=== PATIENT | male | born 1940 | race Caucasian/White ===

== ENCOUNTER → 2017-11-05 | Outpatient (CLI) | payer MEDICARE, OTHER ==
[~2017-11-05] MED LIST: ASPI-231 PO; ATEN50TA PO; ATO40T PO; ATOR40TA52 PO; LOSA25TA9 PO; METF-372 PO; OMEP20CA74 PO; RANI150C11 PO; RANI1TAB PO
== END | disposition home or self-care (01) ==
LOC: XYW 08:29
PROVIDERS: ATTEND Family Medicine
DX: K40.20 Bilateral inguinal hernia, without obstruction or gangrene, not specified as recurrent (principal); N13.30 Unspecified hydronephrosis; K80.20 Calculus of gallbladder without cholecystitis without obstruction; S36.81XA Injury of peritoneum, initial encounter; I70.0 Atherosclerosis of aorta; K44.9 Diaphragmatic hernia without obstruction or gangrene; X58.XXXA Exposure to other specified factors, initial encounter; Y93.89 Activity, other specified; Y92.89 Other specified places as the place of occurrence of the external cause; Y99.8 Other external cause status
CPT/HCPCS: 74176

== ENCOUNTER → 2019-02-16 | Outpatient (CLI) | payer MEDICARE, OTHER ==
[~2019-02-16] MED LIST changes: +LOSA25TA38 PO; -LOSA25TA9 PO
== END | disposition home or self-care (01) ==
LOC: XYW 10:33
DX: M16.0 Bilateral primary osteoarthritis of hip (principal); M43.16 Spondylolisthesis, lumbar region
CPT/HCPCS: 72100; 73501

== ENCOUNTER → 2019-12-01 | Outpatient (CLI) | payer MEDICARE, OTHER | END | disposition home or self-care (01) | LOC: CT 08:17 | DX: Z12.2 Encounter for screening for malignant neoplasm of respiratory organs (principal); I70.0 Atherosclerosis of aorta; I25.10 Atherosclerotic heart disease of native coronary artery without angina pectoris; I51.7 Cardiomegaly; J43.9 Emphysema, unspecified; J47.9 Bronchiectasis, uncomplicated; J98.11 Atelectasis; R91.1 Solitary pulmonary nodule; K80.20 Calculus of gallbladder without cholecystitis without obstruction; K44.9 Diaphragmatic hernia without obstruction or gangrene; Z87.891 Personal history of nicotine dependence | CPT/HCPCS: 71250 ==

== ENCOUNTER → 2021-01-24 | Outpatient (CLI) | payer MEDICARE, OTHER | END | disposition home or self-care (01) | LOC: XYW 09:21 | DX: K76.0 Fatty (change of) liver, not elsewhere classified (principal); N32.89 Other specified disorders of bladder; R91.8 Other nonspecific abnormal finding of lung field; J84.10 Pulmonary fibrosis, unspecified; J43.2 Centrilobular emphysema; K80.20 Calculus of gallbladder without cholecystitis without obstruction; K44.9 Diaphragmatic hernia without obstruction or gangrene; I70.0 Atherosclerosis of aorta; R94.4 Abnormal results of kidney function studies; Z98.61 Coronary angioplasty status | CPT/HCPCS: 71250; 76775 ==

== ENCOUNTER → 2022-01-15 | Outpatient (CLI) | payer MEDICARE, OTHER ==
[~2022-01-15] MED LIST changes: -ASPI-231 PO; +ASPI1TAB20 PO; +IOHEXOL 350 MG/ML 100ML IJ ONE
== END | disposition home or self-care (01) ==
LOC: CT 08:29
DX: E07.89 Other specified disorders of thyroid (principal); J98.4 Other disorders of lung; M12.9 Arthropathy, unspecified; I70.0 Atherosclerosis of aorta; I65.29 Occlusion and stenosis of unspecified carotid artery
CPT/HCPCS: 70498; Q9967

== ENCOUNTER 2022-05-14 08:38 | Inpatient (IN) | payer MEDICARE, OTHER ==
[2022-05-14] VITALS (40 sets, daily range): BP systolic 72–159; BP diastolic 32–135
[~2022-05-14] VITALS: Ht 167.6 cm; Wt 71.2 kg
[~2022-05-14 08:38] MED LIST changes: -IOHEXOL 350 MG/ML 100ML IJ ONE
[2022-05-14] MEDS ORDERED: ONDANSETRON HCL 4 MG/2 ML VIAL IV ONE (09:15)
[2022-05-14] MEDS ORDERED: MORPHINE SULFATE 4 MG/ML SYR/VIAL IV ONE (09:15)
[2022-05-14] MEDS ORDERED: SODIUM CHLORIDE 0.9% 1,000 ML IV ONE ×2 (09:15)
[2022-05-14] MEDS ORDERED: DOPamine 1600MCG/ML D5W 250 ML IV ONE (10:00)
[2022-05-14 10:02] LABS: INR 1.25 (0.9-1.15); Partial Thromboplastin Time 32.6 sec (24.6-33.4)
[2022-05-14 10:11] LABS: Hemoglobin 10.4 g/dL (13.5-17.5); White Blood Cell 12.1 10^3/uL (4.4-10.8)
[2022-05-14 10:15] LABS: Hematocrit 32.4 % (41.0-53.0); Mean Corpuscular Hemoglobin 27.5 pg (28.0-32.0); Mean Corpuscular Hgb Conc. 32.1 g/dL (32.0-36.0); Mean Corpuscular Volume 85.8 fL (80.0-100.0); Red Blood Cells 3.78 10^6/uL (4.5-5.90); Red Cell Distribution Width 15.1 % (11.8-14.3)
[2022-05-14 10:20] LABS: Albumin 2.3 g/dL (3.4-5.0); Calcium 8.8 mg/dL (8.5-10.1); Magnesium 2.2 mg/dL (1.6-2.6); Potassium 5.2 mmol/L (3.5-5.1)
[2022-05-14 10:24] LABS: BUN/Creatinine Ratio 14.8; Bilirubin, Total 0.7 mg/dL (0.2-1.0); Total Protein 6.6 g/dL (6.4-8.2)
[2022-05-14] MEDS ORDERED: ASPirin 81 mg TAB PO ONE (10:30)
[2022-05-14] MEDS ORDERED: ENOXAPARIN SOD 60 MG/0.6 ML SYRINGE SC ONE (10:30)
[2022-05-14 10:35] LABS: Basophils % (manual) 0 (0.0-2.0); Blast Cells 0; Eosinophils % (manual) 0 (0-7); Promyelocytes % 0; Reactive Lymphocytes 0
[2022-05-14] MEDS ORDERED: PANTOPRAZOLE 40 MG/10 ML VIAL INJ IV ONE (11:30)
[2022-05-14] MEDS ORDERED: DEXTROSE (50%) 50ML SYRG IV PRN (11:30)
[2022-05-14 11:38] LABS: Urine Amorphous Crystal MOD /hpf (None Seen); Urine Bacteria FEW /hpf (None Seen); Urine Blood TRACE /uL (Negative); Urine Specific Gravity 1.024 (1.001-1.035); Urine WBC 5 /hpf (0 - 3)
[2022-05-14] MEDS ORDERED: DexAMETHasone SOD PHOS 4 MG/1ML SDV INJ IV ONE (11:45)
[2022-05-14] MEDS ORDERED: SODIUM CHLORIDE 0.9% 1,000 ML IV SCH (11:45)
[2022-05-14] MEDS: NOREPINEPHRINE 8 MG/250ML KIT 250 ML IV SCH (11:45)
[2022-05-14] MEDS: DOPamine 1600MCG/ML D5W 250 ML IV SCH ×2 (11:58→18:10)
[2022-05-14 12:06] LABS: Band Neutrophils % (manual) 15; Lymphocytes % (manual) 21 (10.0-50.0); Metamyelocytes % 5; Monocytes % (manual) 9 (0-12); Myelocytes % 1
[2022-05-14] MEDS ORDERED: KETOROLAC TROMETH 30 MG/ML 1ML VIAL IV ONE (13:00)
[2022-05-14] MEDS: ACCU-CHEK COMFORT CURVE STRIP VI SCH ×3 (13:15→23:36)
[2022-05-14] MEDS: InsuLIN REG 1unit/0.01ml Soln (100units/ml) SC SCH ×3 (13:15→23:34)
[2022-05-14] MEDS ORDERED: HYDROmorphone HCL 2 MG/ML VL/or syr IV PRN (14:30)
[2022-05-14] MEDS ORDERED: PIPERACILLIN-TAZOB 2.25GM 50 ML IV ONE (15:00)
[2022-05-14] MEDS ORDERED: CYCLOBENZAPRINE HCL 10 MG TAB PO PRN (15:15)
[2022-05-14] MEDS ORDERED: RANO500T2 PO (15:38)
[2022-05-14] MEDS ORDERED: METF-370 PO (15:38)
[2022-05-14] MEDS ORDERED: PERCOT PO (15:38)
[2022-05-14] MEDS ORDERED: ACET1CAP14 PO (15:38)
[2022-05-14] MEDS ORDERED: CLOP75TA28 PO (15:38)
[2022-05-14] MEDS ORDERED: CYCL-837 PO (15:38)
[2022-05-14] MEDS ORDERED: AML5T PO (15:38)
[2022-05-14] MEDS ORDERED: LOSA-69 PO (15:38)
[2022-05-14] MEDS ORDERED: NITR1SPR TL (15:38)
[2022-05-14] MEDS: fentaNYL 25MCG/HR 25 MCG/HR PAT TD SCH (16:24)
[2022-05-14] MEDS: SODIUM CHLORIDE 0.9% 1,000 ML IV SCH ×2 (18:10→19:10)
[2022-05-14] MEDS ORDERED: LIDOCAINE 1% (LOCAL ANESTH.) PF 5ml SDV ID ONE (18:45)
[2022-05-14] MEDS ORDERED: LORazepam 2MG/ML-1ML VIAL IV PRN (21:00)
[2022-05-14] MEDS: SODIUM CHLOR 0.9% PF (SALINE LOCK) 10ML VIAL/SYR IV SCH (21:39)
[2022-05-14] MEDS ORDERED: DexAMETHasone SOD PHOS 10MG/1ML VIAL INJ IV SCH (22:00)
[2022-05-14] MEDS: PIPERACILLIN-TAZOB 2.25GM 50 ML IV SCH (22:51)
[2022-05-15] VITALS (93 sets, daily range): BP systolic 63–145; BP diastolic 26–88
[2022-05-15] MEDS ORDERED: diphenhdrAMINE HCL 25 MG CAP PO PRN (01:00)
[2022-05-15] MEDS: DOPamine 1600MCG/ML D5W 250 ML IV SCH (02:38)
[2022-05-15] MEDS: NITROGLYCERIN 0.4 MG SL TAB SL PRN ×4 (03:02→06:37)
[2022-05-15] MEDS: MORPHINE SULFATE INJ 2 MG/ml SYRG IV PRN (05:03)
[2022-05-15 05:23] LABS: Basophils # (auto) 0 10 ^3/uL (0-0.2); Basophils % (auto) 0.1 % (0.0-2.0); Eosinophils # (auto) 0 10 ^3/uL (0-0.8); Hematocrit 31.9 % (41.0-53.0); Hemoglobin 10.4 g/dL (13.5-17.5); Lymphocytes # (auto) 0.6 10 ^3/uL (0.4-5.4); Lymphocytes % (auto) 5.9 % (10.0-50.0); Mean Corpuscular Hemoglobin 27.5 pg (28.0-32.0); Mean Corpuscular Hgb Conc. 32.8 g/dL (32.0-36.0); Monocytes # (auto) 0.3 10 ^3/uL (0-1.3); Monocytes % (auto) 2.5 % (0.0-12.0); Neutrophils # (auto) 9.3 10 ^3/uL (1.6-8.6); Neutrophils % (auto) 91.5 % (37.0-80.0); Red Blood Cells 3.79 10^6/uL (4.5-5.90); Red Cell Distribution Width 14.8 % (11.8-14.3); White Blood Cell 10.2 10^3/uL (4.4-10.8)
[2022-05-15 05:43] LABS: Albumin 2.1 g/dL (3.4-5.0); Calcium 8.2 mg/dL (8.5-10.1); Potassium 4.9 mmol/L (3.5-5.1)
[2022-05-15 05:47] LABS: BUN/Creatinine Ratio 14.7; Bilirubin, Total 0.6 mg/dL (0.2-1.0); Total Protein 6.5 g/dL (6.4-8.2)
[2022-05-15] MEDS: ACCU-CHEK COMFORT CURVE STRIP VI SCH ×4 (06:00→23:48)
[2022-05-15] MEDS: InsuLIN REG 1unit/0.01ml Soln (100units/ml) SC SCH ×4 (06:27→23:49)
[2022-05-15] MEDS: PIPERACILLIN-TAZOB 2.25GM 50 ML IV SCH ×3 (06:53→23:00)
[2022-05-15] MEDS ORDERED: ENOXAPARIN SOD 60 MG/0.6 ML SYRINGE SC SCH (10:00)
[2022-05-15] MEDS ORDERED: LOPERAMIDE HCL 2 MG CAP/TAB PO PRN (10:45)
[2022-05-15] MEDS ORDERED: NITROGLYCERIN 0.2MG/HR TOPICAL PATCH TD ONE (10:45)
[2022-05-15] MEDS ORDERED: SODIUM BICARBONATE 50ML VIAL 50 ML in SOD CHL 0.45% 1,000 ML IV SCH (11:00)
[2022-05-15] MEDS ORDERED: DexAMETHasone SOD PHOS 4 MG/1ML SDV INJ IV ONE (11:45)
[2022-05-15] MEDS ORDERED: ENOXAPARIN SOD 30 MG/0.3 ML SYRINGE SC ONE (11:45)
[2022-05-15] MEDS: NOREPINEPHRINE 8 MG/250ML KIT 250 ML IV SCH (11:45)
[2022-05-15] MEDS: PANTOPRAZOLE 40 MG/10 ML VIAL INJ IV SCH (11:55)
[2022-05-15] MEDS: ASPirin 81 mg TAB PO SCH (11:56)
[2022-05-15] MEDS: SODIUM CHLOR 0.9% PF (SALINE LOCK) 10ML VIAL/SYR IV SCH ×2 (11:56→21:44)
[2022-05-15] MEDS: ENOXAPARIN SOD 30 MG/0.3 ML SYRINGE SC SCH (11:57)
[2022-05-15] MEDS: DOBUTamine 1000MCG/ML 250 ML IV SCH (12:40)
[2022-05-15 13:26] LABS: Hepatitis C Antibody Negative (Negative)
[2022-05-15] MEDS: Glucerna Carbsteady SHAKE Stawberry 8oz PO SCH (13:37)
[2022-05-15] MEDS: OXYCODONE W/ ACETAMINOPHEN 5/325MG TABLET PO PRN (14:33)
[2022-05-15 18:03] LABS: Protein, Urine 109.9 mg/dL (0.0-11.9)
[2022-05-15] MEDS: DexAMETHasone SOD PHOS 4 MG/1ML SDV INJ IV SCH (21:43)
[2022-05-16] VITALS (41 sets, daily range): BP systolic 100–138; BP diastolic 34–76
[2022-05-16] MEDS: NITROGLYCERIN 0.4 MG SL TAB SL PRN ×3 (02:53→08:59)
[2022-05-16 04:58] LABS: Basophils # (auto) 0 10 ^3/uL (0-0.2); Basophils % (auto) 0.1 % (0.0-2.0); Eosinophils # (auto) 0 10 ^3/uL (0-0.8); Eosinophils % (auto) 0.1 % (0.0-7.0); Hematocrit 30.5 % (41.0-53.0); Hemoglobin 10.2 g/dL (13.5-17.5); Lymphocytes # (auto) 0.5 10 ^3/uL (0.4-5.4); Mean Corpuscular Hemoglobin 28.2 pg (28.0-32.0); Mean Corpuscular Hgb Conc. 33.3 g/dL (32.0-36.0); Mean Corpuscular Volume 84.7 fL (80.0-100.0); Monocytes # (auto) 0.4 10 ^3/uL (0-1.3); Monocytes % (auto) 4.6 % (0.0-12.0); Neutrophils # (auto) 6.9 10 ^3/uL (1.6-8.6); Neutrophils % (auto) 89.2 % (37.0-80.0); Red Blood Cells 3.61 10^6/uL (4.5-5.90); Red Cell Distribution Width 15.3 % (11.8-14.3); White Blood Cell 7.7 10^3/uL (4.4-10.8)
[2022-05-16 05:23] LABS: BUN/Creatinine Ratio 15.9; Calcium 8.1 mg/dL (8.5-10.1); Potassium 5.4 mmol/L (3.5-5.1)
[2022-05-16] MEDS: ACCU-CHEK COMFORT CURVE STRIP VI SCH ×4 (06:54→23:09)
[2022-05-16] MEDS: InsuLIN REG 1unit/0.01ml Soln (100units/ml) SC SCH ×4 (06:55→23:14)
[2022-05-16] MEDS: PIPERACILLIN-TAZOB 2.25GM 50 ML IV SCH ×3 (06:57→23:08)
[2022-05-16] MEDS: DOBUTamine 1000MCG/ML 250 ML IV SCH (07:45)
[2022-05-16] MEDS: Glucerna Carbsteady SHAKE Stawberry 8oz PO SCH ×3 (08:00→18:36)
[2022-05-16] MEDS: MORPHINE SULFATE INJ 2 MG/ml SYRG IV PRN (09:05)
[2022-05-16] MEDS: DexAMETHasone SOD PHOS 4 MG/1ML SDV INJ IV SCH (09:58)
[2022-05-16] MEDS: PANTOPRAZOLE 40 MG/10 ML VIAL INJ IV SCH (09:59)
[2022-05-16] MEDS: ASPirin 81 mg TAB PO SCH (10:00)
[2022-05-16] MEDS ORDERED: NITROGLYCERIN 0.2MG/HR TOPICAL PATCH TD SCH (10:00)
[2022-05-16] MEDS: SODIUM CHLOR 0.9% PF (SALINE LOCK) 10ML VIAL/SYR IV SCH ×2 (10:00→22:00)
[2022-05-16] MEDS: ENOXAPARIN SOD 30 MG/0.3 ML SYRINGE SC SCH (10:01)
[2022-05-16] MEDS ORDERED: NITROGLYCERIN 0.4MG/HR TOPICAL PATCH TD ONE (10:30)
[2022-05-16] MEDS ORDERED: DEXTROSE (50%) 50ML SYRG IV ONE (10:30)
[2022-05-16] MEDS ORDERED: SODIUM BICARBONATE 50ML VIAL 50 ML in SOD CHL 0.45% 1,000 ML IV SCH (10:30)
[2022-05-16] MEDS ORDERED: InsuLIN REG 1unit/0.01ml Soln (100units/ml) IV ONE (10:30)
[2022-05-16] MEDS ORDERED: CALCIUM GLUC 1,000mg/50ml-NS 50 ML IV ONE (10:30)
[2022-05-16] MEDS: NOREPINEPHRINE 8 MG/250ML KIT 250 ML IV SCH (11:45)
[2022-05-16] MEDS: SODIUM BICARBONATE 50ML VIAL 50 ML in SOD CHL 0.45% 1,000 ML IV SCH (12:22)
[2022-05-16] MEDS: ALPRAZolam 0.25 MG TAB PO PRN ×2 (12:52→23:14)
[2022-05-16] MEDS ORDERED: SODIUM BICARBONATE 650 MG TAB PO SCH (14:00)
[2022-05-16] MEDS: SODIUM ZIRCONIUM CYCL 10 GM PAK PO SCH ×2 (14:10→23:05)
[2022-05-16 17:54] LABS: BUN/Creatinine Ratio 15.6; Potassium 5.1 mmol/L (3.5-5.1)
[2022-05-17] VITALS (9 sets, daily range): BP systolic 97–133; BP diastolic 45–95
[2022-05-17] MEDS: SODIUM BICARBONATE 50ML VIAL 50 ML in SOD CHL 0.45% 1,000 ML IV SCH ×2 (03:51→22:56)
[2022-05-17 05:13] LABS: Basophils # (auto) 0 10 ^3/uL (0-0.2); Eosinophils # (auto) 0 10 ^3/uL (0-0.8); Hematocrit 28.8 % (41.0-53.0); Hemoglobin 9.6 g/dL (13.5-17.5); Lymphocytes # (auto) 0.4 10 ^3/uL (0.4-5.4); Lymphocytes % (auto) 6.3 % (10.0-50.0); Mean Corpuscular Hemoglobin 27.9 pg (28.0-32.0); Mean Corpuscular Hgb Conc. 33.2 g/dL (32.0-36.0); Mean Corpuscular Volume 83.9 fL (80.0-100.0); Monocytes # (auto) 0.5 10 ^3/uL (0-1.3); Monocytes % (auto) 7.2 % (0.0-12.0); Neutrophils % (auto) 86.5 % (37.0-80.0); Red Blood Cells 3.43 10^6/uL (4.5-5.90); Red Cell Distribution Width 15.3 % (11.8-14.3)
[2022-05-17 05:30] LABS: Albumin 1.9 g/dL (3.4-5.0); Potassium 4.5 mmol/L (3.5-5.1)
[2022-05-17 05:33] LABS: BUN/Creatinine Ratio 15.7
[2022-05-17 05:37] LABS: Bilirubin, Total 0.5 mg/dL (0.2-1.0); Total Protein 5.9 g/dL (6.4-8.2)
[2022-05-17] MEDS: SODIUM ZIRCONIUM CYCL 10 GM PAK PO SCH ×3 (06:00→22:00)
[2022-05-17] MEDS: DOBUTamine 1000MCG/ML 250 ML IV SCH (06:09)
[2022-05-17] MEDS: ACCU-CHEK COMFORT CURVE STRIP VI SCH ×3 (06:10→18:47)
[2022-05-17] MEDS: InsuLIN REG 1unit/0.01ml Soln (100units/ml) SC SCH ×3 (06:12→18:49)
[2022-05-17] MEDS: PIPERACILLIN-TAZOB 2.25GM 50 ML IV SCH ×3 (06:28→22:54)
[2022-05-17] MEDS: ALPRAZolam 0.25 MG TAB PO PRN (06:36)
[2022-05-17] MEDS: Glucerna Carbsteady SHAKE Stawberry 8oz PO SCH ×3 (08:00→18:47)
[2022-05-17] MEDS: SODIUM CHLOR 0.9% PF (SALINE LOCK) 10ML VIAL/SYR IV SCH ×2 (10:00→22:00)
[2022-05-17] MEDS: ASPirin 81 mg TAB PO SCH (10:22)
[2022-05-17] MEDS: ENOXAPARIN SOD 30 MG/0.3 ML SYRINGE SC SCH (10:22)
[2022-05-17] MEDS: NITROGLYCERIN 0.4MG/HR TOPICAL PATCH TD SCH (10:25)
[2022-05-17] MEDS: NOREPINEPHRINE 8 MG/250ML KIT 250 ML IV SCH (11:45)
[2022-05-17] MEDS ORDERED: KETOROLAC TROMETH 30 MG/ML 1ML VIAL IV ONE (14:00)
[2022-05-17] MEDS: fentaNYL 25MCG/HR 25 MCG/HR PAT TD SCH (16:44)
[2022-05-17] MEDS: PANTOPRAZOLE 40 MG TAB PO SCH (18:47)
[2022-05-17 18:50] LABS: Urine Amorphous Crystal FEW /hpf (None Seen); Urine Bacteria FEW /hpf (None Seen); Urine Blood 3+ /uL (Negative); Urine Mucus FEW (None Seen); Urine Specific Gravity 1.011 (1.001-1.035); Urine WBC 19 /hpf (0 - 3)
[2022-05-17] MEDS: DexAMETHasone 4 MG TAB PO SCH (22:52)
[2022-05-17] MEDS: HYDROmorphone HCL 2 MG/ML VL/or syr IV PRN (22:55)
[2022-05-18] VITALS (15 sets, daily range): BP systolic 111–167; BP diastolic 55–89
[2022-05-18] MEDS: DOBUTamine 1000MCG/ML 250 ML IV SCH (03:44)
[2022-05-18] MEDS: SODIUM ZIRCONIUM CYCL 10 GM PAK PO SCH (06:00)
[2022-05-18] MEDS: InsuLIN REG 1unit/0.01ml Soln (100units/ml) SC SCH ×4 (06:00→18:10)
[2022-05-18] MEDS: ACCU-CHEK COMFORT CURVE STRIP VI SCH ×4 (06:00→18:13)
[2022-05-18 06:34] LABS: Basophils # (auto) 0 10 ^3/uL (0-0.2); Basophils % (auto) 0.1 % (0.0-2.0); Eosinophils # (auto) 0 10 ^3/uL (0-0.8); Eosinophils % (auto) 0.2 % (0.0-7.0); Hematocrit 31.7 % (41.0-53.0); Hemoglobin 10.3 g/dL (13.5-17.5); Lymphocytes # (auto) 0.4 10 ^3/uL (0.4-5.4); Lymphocytes % (auto) 5.7 % (10.0-50.0); Mean Corpuscular Hemoglobin 27.5 pg (28.0-32.0); Mean Corpuscular Hgb Conc. 32.6 g/dL (32.0-36.0); Mean Corpuscular Volume 84.2 fL (80.0-100.0); Monocytes # (auto) 0.2 10 ^3/uL (0-1.3); Monocytes % (auto) 3.4 % (0.0-12.0); Neutrophils # (auto) 6.4 10 ^3/uL (1.6-8.6); Neutrophils % (auto) 90.6 % (37.0-80.0); Red Blood Cells 3.77 10^6/uL (4.5-5.90); Red Cell Distribution Width 15.4 % (11.8-14.3)
[2022-05-18 06:49] LABS: Potassium 4.3 mmol/L (3.5-5.1)
[2022-05-18 06:56] LABS: Albumin 2.2 g/dL (3.4-5.0); BUN/Creatinine Ratio 16.8; Bilirubin, Total 0.4 mg/dL (0.2-1.0); Calcium 8.3 mg/dL (8.5-10.1); Phosphorus 5.2 mg/dL (2.5-4.90)
[2022-05-18] MEDS ORDERED: ONDANSETRON HCL 4 MG/2 ML VIAL ONE (07:53)
[2022-05-18] MEDS: Glucerna Carbsteady SHAKE Stawberry 8oz PO SCH ×3 (08:00→18:00)
[2022-05-18] MEDS ORDERED: ONDANSETRON HCL 4 MG/2 ML VIAL IV PRN (08:00)
[2022-05-18] MEDS: PIPERACILLIN-TAZOB 2.25GM 50 ML IV SCH ×3 (08:05→22:46)
[2022-05-18] MEDS: OXYCODONE W/ ACETAMINOPHEN 5/325MG TABLET PO PRN (08:05)
[2022-05-18] MEDS: SODIUM CHLOR 0.9% PF (SALINE LOCK) 10ML VIAL/SYR IV SCH ×2 (08:52→21:45)
[2022-05-18] MEDS: DOCUSATE SOD 100 MG CAP PO SCH ×2 (10:04→21:45)
[2022-05-18] MEDS: ASPirin 81 mg TAB PO SCH (10:04)
[2022-05-18] MEDS: PANTOPRAZOLE 40 MG TAB PO SCH (10:05)
[2022-05-18] MEDS: DexAMETHasone 4 MG TAB PO SCH ×2 (10:05→21:46)
[2022-05-18] MEDS: ENOXAPARIN SOD 30 MG/0.3 ML SYRINGE SC SCH (10:06)
[2022-05-18] MEDS: NITROGLYCERIN 0.4MG/HR TOPICAL PATCH TD SCH (10:07)
[2022-05-18] MEDS: NOREPINEPHRINE 8 MG/250ML KIT 250 ML IV SCH (11:45)
[2022-05-18] MEDS ORDERED: KETOROLAC TROMETH 30 MG/ML 1ML VIAL IV ONE (12:00)
[2022-05-18] MEDS: CYCLOBENZAPRINE HCL 10 MG TAB PO PRN ×2 (12:09→21:48)
[2022-05-18] MEDS: SODIUM BICARBONATE 50ML VIAL 50 ML in SOD CHL 0.45% 1,000 ML IV SCH (15:37)
[2022-05-18] MEDS: NITROGLYCERIN 0.4 MG SL TAB SL PRN (18:43)
[2022-05-19] VITALS (17 sets, daily range): BP systolic 127–163; BP diastolic 59–94
[2022-05-19] MEDS: DOBUTamine 1000MCG/ML 250 ML IV SCH
[2022-05-19] MEDS: InsuLIN REG 1unit/0.01ml Soln (100units/ml) SC SCH ×4 (00:07→17:46)
[2022-05-19] MEDS: ACCU-CHEK COMFORT CURVE STRIP VI SCH ×4 (00:08→18:00)
[2022-05-19 06:54] LABS: Basophils # (auto) 0 10 ^3/uL (0-0.2); Basophils % (auto) 0.1 % (0.0-2.0); Eosinophils # (auto) 0 10 ^3/uL (0-0.8); Eosinophils % (auto) 0.2 % (0.0-7.0); Hematocrit 30.4 % (41.0-53.0); Hemoglobin 10.2 g/dL (13.5-17.5); Lymphocytes # (auto) 0.5 10 ^3/uL (0.4-5.4); Lymphocytes % (auto) 6.3 % (10.0-50.0); Mean Corpuscular Hemoglobin 28.1 pg (28.0-32.0); Mean Corpuscular Hgb Conc. 33.4 g/dL (32.0-36.0); Monocytes # (auto) 0.5 10 ^3/uL (0-1.3); Monocytes % (auto) 6.3 % (0.0-12.0); Neutrophils # (auto) 7.5 10 ^3/uL (1.6-8.6); Neutrophils % (auto) 87.1 % (37.0-80.0); Red Blood Cells 3.62 10^6/uL (4.5-5.90); Red Cell Distribution Width 15.1 % (11.8-14.3); White Blood Cell 8.6 10^3/uL (4.4-10.8)
[2022-05-19] MEDS: IPRATROPIUM BROM 0.5 MG/2.5ML INH SOL NEB PRN (06:54)
[2022-05-19] MEDS: ALBUTEROL SULF 2.5 MG/0.5ML(0.5%) NEB SOLN NEB PRN (06:54)
[2022-05-19] MEDS: PIPERACILLIN-TAZOB 2.25GM 50 ML IV SCH (07:00)
[2022-05-19 07:10] LABS: Potassium 3.9 mmol/L (3.5-5.1)
[2022-05-19 07:17] LABS: Albumin 2.1 g/dL (3.4-5.0); BUN/Creatinine Ratio 17.1; Bilirubin, Total 0.4 mg/dL (0.2-1.0); Calcium 8.2 mg/dL (8.5-10.1); Magnesium 1.8 mg/dL (1.6-2.6); Phosphorus 3.9 mg/dL (2.5-4.90); Total Protein 5.9 g/dL (6.4-8.2)
[2022-05-19] MEDS: Glucerna Carbsteady SHAKE Stawberry 8oz PO SCH ×3 (08:00→18:00)
[2022-05-19] MEDS: CYCLOBENZAPRINE HCL 10 MG TAB PO PRN ×2 (08:30→21:54)
[2022-05-19] MEDS: SODIUM CHLOR 0.9% PF (SALINE LOCK) 10ML VIAL/SYR IV SCH ×2 (10:00→22:00)
[2022-05-19] MEDS: DOCUSATE SOD 100 MG CAP PO SCH ×2 (10:00→21:53)
[2022-05-19] MEDS: NITROGLYCERIN 0.4MG/HR TOPICAL PATCH TD SCH (10:00)
[2022-05-19] MEDS: ENOXAPARIN SOD 30 MG/0.3 ML SYRINGE SC SCH (10:00)
[2022-05-19] MEDS: PANTOPRAZOLE 40 MG TAB PO SCH (10:00)
[2022-05-19] MEDS: ASPirin 81 mg TAB PO SCH (10:00)
[2022-05-19] MEDS: OXYCODONE W/ ACETAMINOPHEN 5/325MG TABLET PO PRN (15:04)
[2022-05-19] MEDS ORDERED: hydrALAZINE HCL 25 MG TAB PO ONE (17:00)
[2022-05-19] MEDS: SALINE 0.65 % NASAL SPRAY 45ML BOTTLE EACHNOSTRI SCH (20:45)
[2022-05-19] MEDS: DexAMETHasone 4 MG TAB PO SCH (21:54)
[2022-05-19] MEDS: ATORVASTATIN 20 MG TAB PO SCH (21:54)
[2022-05-19] MEDS ORDERED: hydrALAZINE HCL 25 MG TAB PO SCH (22:00)
[2022-05-20] VITALS (15 sets, daily range): BP systolic 103–158; BP diastolic 53–96
[2022-05-20] MEDS: NITROGLYCERIN 0.4 MG SL TAB SL PRN (02:05)
[2022-05-20] MEDS: ACCU-CHEK COMFORT CURVE STRIP VI SCH ×5 (06:00→23:53)
[2022-05-20] MEDS: SALINE 0.65 % NASAL SPRAY 45ML BOTTLE EACHNOSTRI SCH ×4 (06:00→22:14)
[2022-05-20] MEDS: InsuLIN REG 1unit/0.01ml Soln (100units/ml) SC SCH ×5 (06:00→23:53)
[2022-05-20 06:34] LABS: Hemoglobin 11.1 g/dL (13.5-17.5); Mean Corpuscular Hemoglobin 27.6 pg (28.0-32.0); Mean Corpuscular Hgb Conc. 32.7 g/dL (32.0-36.0); Mean Corpuscular Volume 84.3 fL (80.0-100.0); Red Blood Cells 4.04 10^6/uL (4.5-5.90); Red Cell Distribution Width 15.1 % (11.8-14.3); White Blood Cell 9.9 10^3/uL (4.4-10.8)
[2022-05-20 06:44] LABS: Basophils % (manual) 0 (0.0-2.0); Blast Cells 0; Myelocytes % 0; Promyelocytes % 0; Reactive Lymphocytes 0
[2022-05-20 06:55] LABS: Albumin 2.2 g/dL (3.4-5.0); Calcium 8.3 mg/dL (8.5-10.1); Magnesium 1.8 mg/dL (1.6-2.6); Potassium 3.7 mmol/L (3.5-5.1)
[2022-05-20 06:57] LABS: BUN/Creatinine Ratio 18.8; Bilirubin, Total 0.4 mg/dL (0.2-1.0); Total Protein 6.1 g/dL (6.4-8.2)
[2022-05-20 08:09] LABS: Band Neutrophils % (manual) 5; Eosinophils % (manual) 1 (0-7); Lymphocytes % (manual) 13 (10.0-50.0); Metamyelocytes % 1; Monocytes % (manual) 2 (0-12)
[2022-05-20] MEDS: Glucerna Carbsteady SHAKE Stawberry 8oz PO SCH ×3 (08:25→18:00)
[2022-05-20] MEDS ORDERED: LORazepam 2MG/ML-1ML VIAL IV ONE (09:45)
[2022-05-20] MEDS: hydrALAZINE HCL 25 MG TAB PO SCH ×2 (10:00→22:13)
[2022-05-20] MEDS: SODIUM CHLOR 0.9% PF (SALINE LOCK) 10ML VIAL/SYR IV SCH ×2 (10:00→22:15)
[2022-05-20] MEDS: DOCUSATE SOD 100 MG CAP PO SCH ×2 (10:00→22:00)
[2022-05-20] MEDS: levoFLOXacin 250MG 50 ML IV SCH (10:27)
[2022-05-20] MEDS: ENOXAPARIN SOD 30 MG/0.3 ML SYRINGE SC SCH (10:27)
[2022-05-20] MEDS: NITROGLYCERIN 0.4MG/HR TOPICAL PATCH TD SCH (10:28)
[2022-05-20] MEDS: CYCLOBENZAPRINE HCL 10 MG TAB PO PRN ×2 (10:29→20:01)
[2022-05-20] MEDS: PANTOPRAZOLE 40 MG TAB PO SCH (10:29)
[2022-05-20] MEDS: ASPirin 81 mg TAB PO SCH (10:29)
[2022-05-20] MEDS: DexAMETHasone 4 MG TAB PO SCH ×2 (10:29→22:14)
[2022-05-20] MEDS: OXYCODONE W/ ACETAMINOPHEN 5/325MG TABLET PO PRN ×2 (10:30→20:01)
[2022-05-20] MEDS: CARVEDILOL 3.125 MG TAB PO SCH ×2 (10:30→22:14)
[2022-05-20] MEDS ORDERED: DULoxetine HCL 30 MG CAP PO ONE (11:15)
[2022-05-20] MEDS: ALPRAZolam 0.25 MG TAB PO PRN ×2 (13:29→13:43)
[2022-05-20] MEDS ORDERED: LORazepam 0.5 MG TAB PO ONE (13:45)
[2022-05-20] MEDS: HYDROmorphone HCL 2 MG/ML VL/or syr IV PRN (14:29)
[2022-05-20] MEDS: fentaNYL 25MCG/HR 25 MCG/HR PAT TD SCH (15:46)
[2022-05-20] MEDS: ALBUTEROL SULF 2.5 MG/0.5ML(0.5%) NEB SOLN NEB PRN (18:19)
[2022-05-20] MEDS: IPRATROPIUM BROM 0.5 MG/2.5ML INH SOL NEB PRN (18:19)
[2022-05-20] MEDS: ATORVASTATIN 20 MG TAB PO SCH (22:11)
[2022-05-20] MEDS: DULoxetine HCL 30 MG CAP PO SCH (22:12)
[2022-05-21] MEDS: NITROGLYCERIN 0.4 MG SL TAB SL PRN ×2 (03:45→16:58)
[2022-05-21 04:57] VITALS: BP 116/62
[2022-05-21] MEDS: SALINE 0.65 % NASAL SPRAY 45ML BOTTLE EACHNOSTRI SCH ×4 (05:54→21:53)
[2022-05-21] MEDS: ACCU-CHEK COMFORT CURVE STRIP VI SCH ×3 (05:55→17:04)
[2022-05-21] MEDS: InsuLIN REG 1unit/0.01ml Soln (100units/ml) SC SCH ×3 (06:05→17:04)
[2022-05-21 06:15] LABS: Hematocrit 31.8 % (41.0-53.0); Hemoglobin 10.5 g/dL (13.5-17.5); Mean Corpuscular Hemoglobin 27.9 pg (28.0-32.0); Mean Corpuscular Hgb Conc. 32.8 g/dL (32.0-36.0); Mean Corpuscular Volume 84.9 fL (80.0-100.0); Red Blood Cells 3.75 10^6/uL (4.5-5.90); Red Cell Distribution Width 15.1 % (11.8-14.3); White Blood Cell 9.7 10^3/uL (4.4-10.8)
[2022-05-21 06:38] LABS: Calcium 7.8 mg/dL (8.5-10.1); Magnesium 1.6 mg/dL (1.6-2.6); Potassium 3.4 mmol/L (3.5-5.1)
[2022-05-21 06:43] LABS: Band Neutrophils % (manual) 0; Basophils % (manual) 0 (0.0-2.0); Blast Cells 0; Eosinophils % (manual) 0 (0-7); Metamyelocytes % 0; Myelocytes % 0; Promyelocytes % 0; Reactive Lymphocytes 0
[2022-05-21 06:44] LABS: BUN/Creatinine Ratio 17.7; Bilirubin, Total 0.5 mg/dL (0.2-1.0); Phosphorus 3.1 mg/dL (2.5-4.90); Total Protein 5.6 g/dL (6.4-8.2)
[2022-05-21] MEDS: OXYCODONE W/ ACETAMINOPHEN 5/325MG TABLET PO PRN ×2 (07:52→17:44)
[2022-05-21] MEDS: CYCLOBENZAPRINE HCL 10 MG TAB PO PRN ×2 (07:53→17:44)
[2022-05-21 08:08] LABS: Lymphocytes % (manual) 8 (10.0-50.0); Monocytes % (manual) 5 (0-12)
[2022-05-21] MEDS: SODIUM CHLOR 0.9% PF (SALINE LOCK) 10ML VIAL/SYR IV SCH ×2 (08:17→22:00)
[2022-05-21] MEDS: Glucerna Carbsteady SHAKE Stawberry 8oz PO SCH ×3 (08:17→17:04)
[2022-05-21 09:00] VITALS: BP 116/63
[2022-05-21] MEDS: CARVEDILOL 3.125 MG TAB PO SCH ×2 (09:10→21:53)
[2022-05-21] MEDS: ENOXAPARIN SOD 30 MG/0.3 ML SYRINGE SC SCH (09:10)
[2022-05-21] MEDS: PANTOPRAZOLE 40 MG TAB PO SCH (09:10)
[2022-05-21] MEDS: ASPirin 81 mg TAB PO SCH (09:11)
[2022-05-21] MEDS: hydrALAZINE HCL 25 MG TAB PO SCH ×2 (09:11→21:53)
[2022-05-21] MEDS: DexAMETHasone 4 MG TAB PO SCH ×2 (09:11→21:51)
[2022-05-21] MEDS: DULoxetine HCL 30 MG CAP PO SCH ×2 (09:12→21:51)
[2022-05-21] MEDS: DOCUSATE SOD 100 MG CAP PO SCH (09:15)
[2022-05-21] MEDS: NITROGLYCERIN 0.4MG/HR TOPICAL PATCH TD SCH (09:16)
[2022-05-21] MEDS ORDERED: POTASSIUM CHL 10 Meq TABLET PO ONE (10:45)
[2022-05-21] MEDS: ALPRAZolam 0.25 MG TAB PO PRN (11:01)
[2022-05-21] MEDS: HYDROmorphone HCL 2 MG/ML VL/or syr IV PRN (11:34)
[2022-05-21 13:00] VITALS: BP 130/73
[2022-05-21] MEDS: TAMSULOSIN HYDROCHLORIDE 0.4 MG CAP PO SCH (16:58)
[2022-05-21 17:00] VITALS: BP 125/73
[2022-05-21] MEDS: ATORVASTATIN 20 MG TAB PO SCH (21:52)
[2022-05-21 22:00] VITALS: BP 98/53
[2022-05-22] MEDS: ACCU-CHEK COMFORT CURVE STRIP VI SCH ×4 (00:19→18:18)
[2022-05-22] MEDS: InsuLIN REG 1unit/0.01ml Soln (100units/ml) SC SCH ×4 (00:23→18:00)
[2022-05-22] MEDS: NITROGLYCERIN 0.4 MG SL TAB SL PRN ×7 (00:34→21:37)
[2022-05-22] MEDS: ALPRAZolam 0.25 MG TAB PO PRN (03:17)
[2022-05-22 05:00] VITALS: BP 142/78
[2022-05-22 05:13] LABS: Basophils # (auto) 0 10 ^3/uL (0-0.2); Basophils % (auto) 0.1 % (0.0-2.0); Eosinophils # (auto) 0.2 10 ^3/uL (0-0.8); Eosinophils % (auto) 1.6 % (0.0-7.0); Hemoglobin 10.1 g/dL (13.5-17.5); Lymphocytes # (auto) 0.7 10 ^3/uL (0.4-5.4); Lymphocytes % (auto) 6.5 % (10.0-50.0); Mean Corpuscular Hemoglobin 27.5 pg (28.0-32.0); Mean Corpuscular Hgb Conc. 32.4 g/dL (32.0-36.0); Mean Corpuscular Volume 84.8 fL (80.0-100.0); Monocytes # (auto) 0.5 10 ^3/uL (0-1.3); Monocytes % (auto) 4.8 % (0.0-12.0); Neutrophils # (auto) 9.7 10 ^3/uL (1.6-8.6); Red Blood Cells 3.66 10^6/uL (4.5-5.90); White Blood Cell 11.2 10^3/uL (4.4-10.8)
[2022-05-22 05:29] LABS: Albumin 2.2 g/dL (3.4-5.0); Calcium 8.2 mg/dL (8.5-10.1); Magnesium 1.6 mg/dL (1.6-2.6); Potassium 3.5 mmol/L (3.5-5.1)
[2022-05-22 05:33] LABS: BUN/Creatinine Ratio 19.5; Bilirubin, Total 0.3 mg/dL (0.2-1.0); Phosphorus 3.2 mg/dL (2.5-4.90); Total Protein 5.7 g/dL (6.4-8.2)
[2022-05-22] MEDS: SALINE 0.65 % NASAL SPRAY 45ML BOTTLE EACHNOSTRI SCH ×4 (06:24→22:15)
[2022-05-22] MEDS: Glucerna Carbsteady SHAKE Stawberry 8oz PO SCH ×3 (08:27→18:18)
[2022-05-22] MEDS ORDERED: DexAMETHasone 4 MG TAB PO SCH (08:45)
[2022-05-22 09:15] VITALS: BP 112/67
[2022-05-22] MEDS: NITROGLYCERIN 0.4MG/HR TOPICAL PATCH TD SCH (09:22)
[2022-05-22] MEDS: DULoxetine HCL 30 MG CAP PO SCH ×2 (09:23→22:16)
[2022-05-22] MEDS: ASPirin 81 mg TAB PO SCH (09:23)
[2022-05-22] MEDS: ENOXAPARIN SOD 30 MG/0.3 ML SYRINGE SC SCH (09:23)
[2022-05-22] MEDS: PANTOPRAZOLE 40 MG TAB PO SCH (09:24)
[2022-05-22] MEDS: CARVEDILOL 3.125 MG TAB PO SCH (09:24)
[2022-05-22] MEDS: levoFLOXacin 250MG 50 ML IV SCH (09:25)
[2022-05-22] MEDS: DAPAGLIFLOZIN 5 MG TAB PO SCH (09:28)
[2022-05-22] MEDS: hydrALAZINE HCL 25 MG TAB PO SCH ×2 (09:33→22:35)
[2022-05-22] MEDS: OXYCODONE W/ ACETAMINOPHEN 5/325MG TABLET PO PRN ×2 (09:48→15:33)
[2022-05-22] MEDS: CYCLOBENZAPRINE HCL 10 MG TAB PO PRN ×2 (09:48→18:10)
[2022-05-22] MEDS ORDERED: CARVEDILOL 3.125 MG TAB PO ONE (10:45)
[2022-05-22] MEDS: HYDROmorphone HCL 2 MG/ML VL/or syr IV PRN ×2 (10:53→20:10)
[2022-05-22] MEDS: SODIUM CHLOR 0.9% PF (SALINE LOCK) 10ML VIAL/SYR IV SCH ×2 (10:56→22:16)
[2022-05-22 16:52] VITALS: BP 110/66
[2022-05-22] MEDS: DexAMETHasone 4 MG TAB PO SCH (18:18)
[2022-05-22] MEDS: TAMSULOSIN HYDROCHLORIDE 0.4 MG CAP PO SCH (18:18)
[2022-05-22] MEDS: IPRATROPIUM BROM 0.5 MG/2.5ML INH SOL NEB PRN (20:54)
[2022-05-22] MEDS: ALBUTEROL SULF 2.5 MG/0.5ML(0.5%) NEB SOLN NEB PRN (20:55)
[2022-05-22 22:00] VITALS: BP 112/76
[2022-05-22] MEDS ORDERED: CARVEDILOL 12.5 MG TAB PO SCH (22:00)
[2022-05-22] MEDS: ATORVASTATIN 20 MG TAB PO SCH (22:17)
[2022-05-23] MEDS: ACCU-CHEK COMFORT CURVE STRIP VI SCH ×5 (00:06→22:27)
[2022-05-23] MEDS: InsuLIN REG 1unit/0.01ml Soln (100units/ml) SC SCH ×5 (00:08→22:26)
[2022-05-23 05:00] VITALS: BP 128/76
[2022-05-23] MEDS: NITROGLYCERIN 0.4 MG SL TAB SL PRN ×2 (05:02→06:57)
[2022-05-23 05:09] LABS: Basophils # (auto) 0 10 ^3/uL (0-0.2); Basophils % (auto) 0.2 % (0.0-2.0); Eosinophils # (auto) 0 10 ^3/uL (0-0.8); Eosinophils % (auto) 0.2 % (0.0-7.0); Hematocrit 31.2 % (41.0-53.0); Lymphocytes # (auto) 0.5 10 ^3/uL (0.4-5.4); Lymphocytes % (auto) 5.1 % (10.0-50.0); Mean Corpuscular Hemoglobin 27.1 pg (28.0-32.0); Mean Corpuscular Hgb Conc. 32.1 g/dL (32.0-36.0); Mean Corpuscular Volume 84.4 fL (80.0-100.0); Monocytes # (auto) 0.4 10 ^3/uL (0-1.3); Monocytes % (auto) 3.8 % (0.0-12.0); Neutrophils % (auto) 90.7 % (37.0-80.0); Red Blood Cells 3.69 10^6/uL (4.5-5.90); Red Cell Distribution Width 15.1 % (11.8-14.3); White Blood Cell 9.9 10^3/uL (4.4-10.8)
[2022-05-23 05:29] LABS: Albumin 2.2 g/dL (3.4-5.0); Calcium 8.2 mg/dL (8.5-10.1); Magnesium 1.6 mg/dL (1.6-2.6); Potassium 3.6 mmol/L (3.5-5.1)
[2022-05-23 05:32] LABS: BUN/Creatinine Ratio 20.1; Bilirubin, Total 0.4 mg/dL (0.2-1.0); Phosphorus 4.4 mg/dL (2.5-4.90); Total Protein 5.8 g/dL (6.4-8.2)
[2022-05-23] MEDS: IPRATROPIUM BROM 0.5 MG/2.5ML INH SOL NEB PRN (06:09)
[2022-05-23] MEDS: ALBUTEROL SULF 2.5 MG/0.5ML(0.5%) NEB SOLN NEB PRN (06:09)
[2022-05-23] MEDS: SALINE 0.65 % NASAL SPRAY 45ML BOTTLE EACHNOSTRI SCH ×4 (06:29→22:15)
[2022-05-23] MEDS: Glucerna Carbsteady SHAKE Stawberry 8oz PO SCH ×3 (08:00→17:47)
[2022-05-23 08:33] VITALS: BP 125/75
[2022-05-23] MEDS: DULoxetine HCL 30 MG CAP PO SCH ×2 (09:49→22:15)
[2022-05-23] MEDS: DAPAGLIFLOZIN 5 MG TAB PO SCH (09:49)
[2022-05-23] MEDS: ASPirin 81 mg TAB PO SCH (09:49)
[2022-05-23] MEDS: PANTOPRAZOLE 40 MG TAB PO SCH (09:49)
[2022-05-23] MEDS: ENOXAPARIN SOD 30 MG/0.3 ML SYRINGE SC SCH (09:50)
[2022-05-23] MEDS: NITROGLYCERIN 0.4MG/HR TOPICAL PATCH TD SCH (10:00)
[2022-05-23] MEDS ORDERED: MIDAZOLAM HCL 2MG/2ML 2ml VIAL (1mg/ml) IV PRN (10:00)
[2022-05-23] MEDS: SODIUM CHLOR 0.9% PF (SALINE LOCK) 10ML VIAL/SYR IV SCH ×2 (10:00→22:15)
[2022-05-23] MEDS ORDERED: levoFLOXacin 250 MG TAB PO SCH (10:00)
[2022-05-23] MEDS: hydrALAZINE HCL 25 MG TAB PO SCH ×2 (10:00→21:49)
[2022-05-23] MEDS: HYDROmorphone HCL 2 MG/ML VL/or syr IV PRN (10:41)
[2022-05-23 13:11] VITALS: BP 115/66
[2022-05-23] MEDS: OXYCODONE W/ ACETAMINOPHEN 5/325MG TABLET PO PRN (14:20)
[2022-05-23] MEDS: CYCLOBENZAPRINE HCL 10 MG TAB PO PRN (14:28)
[2022-05-23] MEDS: fentaNYL 25MCG/HR 25 MCG/HR PAT TD SCH (14:30)
[2022-05-23 16:54] VITALS: BP 119/65
[2022-05-23] MEDS: DexAMETHasone 4 MG TAB PO SCH (17:47)
[2022-05-23 18:15] VITALS: BP 119/65
[2022-05-23 22:00] VITALS: BP 144/78
[2022-05-23] MEDS: ATORVASTATIN 20 MG TAB PO SCH (22:15)
[2022-05-23] MEDS: ATENOLOL 25 MG TAB PO SCH (22:16)
[2022-05-23] MEDS: DOCUSATE SOD 100 MG CAP PO PRN (22:16)
[2022-05-24] MEDS: HYDROmorphone HCL 2 MG/ML VL/or syr IV PRN (00:27)
[2022-05-24 05:00] VITALS: BP 130/75
[2022-05-24] MEDS: InsuLIN REG 1unit/0.01ml Soln (100units/ml) SC SCH ×4 (06:00→22:06)
[2022-05-24] MEDS: ACCU-CHEK COMFORT CURVE STRIP VI SCH ×4 (06:16→22:05)
[2022-05-24] MEDS: SALINE 0.65 % NASAL SPRAY 45ML BOTTLE EACHNOSTRI SCH ×4 (06:16→21:55)
[2022-05-24 06:29] LABS: BUN/Creatinine Ratio 23.5; Calcium 8.5 mg/dL (8.5-10.1); Potassium 3.5 mmol/L (3.5-5.1)
[2022-05-24] MEDS: Glucerna Carbsteady SHAKE Stawberry 8oz PO SCH ×3 (08:00→18:00)
[2022-05-24 09:00] VITALS: BP 132/66
[2022-05-24] MEDS: ASPirin 81 mg TAB PO SCH (09:39)
[2022-05-24] MEDS: hydrALAZINE HCL 25 MG TAB PO SCH (09:39)
[2022-05-24] MEDS: SODIUM CHLOR 0.9% PF (SALINE LOCK) 10ML VIAL/SYR IV SCH ×2 (09:39→21:55)
[2022-05-24] MEDS: PANTOPRAZOLE 40 MG TAB PO SCH (09:40)
[2022-05-24] MEDS: DULoxetine HCL 30 MG CAP PO SCH ×2 (09:40→21:55)
[2022-05-24] MEDS: DAPAGLIFLOZIN 5 MG TAB PO SCH (09:40)
[2022-05-24] MEDS: ATENOLOL 25 MG TAB PO SCH ×2 (09:43→22:00)
[2022-05-24] MEDS: ENOXAPARIN SOD 30 MG/0.3 ML SYRINGE SC SCH (09:44)
[2022-05-24] MEDS: NITROGLYCERIN 0.4MG/HR TOPICAL PATCH TD SCH (10:00)
[2022-05-24] MEDS ORDERED: POLYETHYLENE GLYCOL 17 GM PWDR PO ONE (11:15)
[2022-05-24] MEDS: CYCLOBENZAPRINE HCL 10 MG TAB PO PRN (12:05)
[2022-05-24] MEDS: OXYCODONE W/ ACETAMINOPHEN 5/325MG TABLET PO PRN (12:05)
[2022-05-24 13:00] VITALS: BP 118/62
[2022-05-24 16:54] VITALS: BP 101/53
[2022-05-24] MEDS: DexAMETHasone 4 MG TAB PO SCH (18:43)
[2022-05-24] MEDS: ATORVASTATIN 20 MG TAB PO SCH (21:55)
[2022-05-24 22:00] VITALS: BP 97/45
[2022-05-25 05:10] VITALS: BP 135/59
[2022-05-25] MEDS: InsuLIN REG 1unit/0.01ml Soln (100units/ml) SC SCH ×4 (06:00→22:31)
[2022-05-25] MEDS: CYCLOBENZAPRINE HCL 10 MG TAB PO PRN ×2 (06:23→18:26)
[2022-05-25] MEDS: SALINE 0.65 % NASAL SPRAY 45ML BOTTLE EACHNOSTRI SCH ×4 (06:44→22:08)
[2022-05-25] MEDS: ACCU-CHEK COMFORT CURVE STRIP VI SCH ×4 (06:44→22:26)
[2022-05-25] MEDS: OXYCODONE W/ ACETAMINOPHEN 5/325MG TABLET PO PRN ×2 (07:15→18:27)
[2022-05-25] MEDS: Glucerna Carbsteady SHAKE Stawberry 8oz PO SCH ×3 (08:00→18:00)
[2022-05-25 08:55] VITALS: BP 134/62
[2022-05-25] MEDS: SODIUM CHLOR 0.9% PF (SALINE LOCK) 10ML VIAL/SYR IV SCH ×2 (09:51→22:09)
[2022-05-25] MEDS: ASPirin 81 mg TAB PO SCH (09:51)
[2022-05-25] MEDS: DULoxetine HCL 30 MG CAP PO SCH ×2 (09:51→22:09)
[2022-05-25] MEDS: PANTOPRAZOLE 40 MG TAB PO SCH (09:51)
[2022-05-25] MEDS: ENOXAPARIN SOD 30 MG/0.3 ML SYRINGE SC SCH (09:52)
[2022-05-25] MEDS: ATENOLOL 25 MG TAB PO SCH ×2 (09:52→22:26)
[2022-05-25] MEDS: NITROGLYCERIN 0.4MG/HR TOPICAL PATCH TD SCH (09:53)
[2022-05-25] MEDS: AZITHROMYCIN 250 MG TAB PO SCH (12:00)
[2022-05-25 13:00] VITALS: BP 122/60
[2022-05-25] MEDS: POLYETHYLENE GLYCOL 17 GM PWDR PO SCH (14:39)
[2022-05-25] MEDS: ALBUTEROL SULF 2.5 MG/0.5ML(0.5%) NEB SOLN NEB PRN (14:50)
[2022-05-25] MEDS: IPRATROPIUM BROM 0.5 MG/2.5ML INH SOL NEB PRN (14:50)
[2022-05-25 16:36] VITALS: BP 127/65
[2022-05-25] MEDS: DexAMETHasone 4 MG TAB PO SCH (17:38)
[2022-05-25 21:34] VITALS: BP 114/55
[2022-05-25] MEDS: ATORVASTATIN 20 MG TAB PO SCH (22:20)
[2022-05-26 04:35] VITALS: BP 123/62
[2022-05-26 05:38] LABS: Basophils # (auto) 0.1 10 ^3/uL (0-0.2); Basophils % (auto) 0.8 % (0.0-2.0); Eosinophils # (auto) 0.1 10 ^3/uL (0-0.8); Eosinophils % (auto) 0.9 % (0.0-7.0); Hematocrit 28.3 % (41.0-53.0); Hemoglobin 9.5 g/dL (13.5-17.5); Lymphocytes # (auto) 0.6 10 ^3/uL (0.4-5.4); Lymphocytes % (auto) 7.8 % (10.0-50.0); Mean Corpuscular Hemoglobin 28.7 pg (28.0-32.0); Mean Corpuscular Hgb Conc. 33.6 g/dL (32.0-36.0); Mean Corpuscular Volume 85.3 fL (80.0-100.0); Monocytes # (auto) 0.4 10 ^3/uL (0-1.3); Monocytes % (auto) 6.2 % (0.0-12.0); Neutrophils # (auto) 5.9 10 ^3/uL (1.6-8.6); Neutrophils % (auto) 84.3 % (37.0-80.0); Nucleated Red Blood Cells % 0.1 %; Red Blood Cells 3.32 10^6/uL (4.5-5.90); Red Cell Distribution Width 14.8 % (11.8-14.3)
[2022-05-26 05:47] LABS: BUN/Creatinine Ratio 24.4; Calcium 8.2 mg/dL (8.5-10.1); Potassium 3.1 mmol/L (3.5-5.1)
[2022-05-26] MEDS: InsuLIN REG 1unit/0.01ml Soln (100units/ml) SC SCH ×2 (06:00→11:49)
[2022-05-26] MEDS: SALINE 0.65 % NASAL SPRAY 45ML BOTTLE EACHNOSTRI SCH ×4 (06:16→20:54)
[2022-05-26] MEDS: ACCU-CHEK COMFORT CURVE STRIP VI SCH ×2 (06:16→11:49)
[2022-05-26] MEDS: ALBUTEROL SULF 2.5 MG/0.5ML(0.5%) NEB SOLN NEB PRN (06:50)
[2022-05-26] MEDS: IPRATROPIUM BROM 0.5 MG/2.5ML INH SOL NEB PRN (06:50)
[2022-05-26] MEDS: Glucerna Carbsteady SHAKE Stawberry 8oz PO SCH ×3 (08:00→18:00)
[2022-05-26 09:00] VITALS: BP 127/63
[2022-05-26] MEDS: DULoxetine HCL 30 MG CAP PO SCH ×2 (09:55→20:55)
[2022-05-26] MEDS: AZITHROMYCIN 250 MG TAB PO SCH (09:55)
[2022-05-26] MEDS: PANTOPRAZOLE 40 MG TAB PO SCH (09:55)
[2022-05-26] MEDS: ASPirin 81 mg TAB PO SCH (09:57)
[2022-05-26] MEDS: SODIUM CHLOR 0.9% PF (SALINE LOCK) 10ML VIAL/SYR IV SCH ×2 (09:57→20:54)
[2022-05-26] MEDS: ENOXAPARIN SOD 30 MG/0.3 ML SYRINGE SC SCH (09:57)
[2022-05-26] MEDS: ATENOLOL 25 MG TAB PO SCH ×2 (09:57→20:59)
[2022-05-26] MEDS ORDERED: AZITHROMYCIN 250 MG TAB PO SCH (10:00)
[2022-05-26] MEDS: NITROGLYCERIN 0.4MG/HR TOPICAL PATCH TD SCH (10:00)
[2022-05-26] MEDS: POLYETHYLENE GLYCOL 17 GM PWDR PO SCH (11:39)
[2022-05-26 12:16] VITALS: BP 124/61
[2022-05-26 13:00] VITALS: BP 138/63
[2022-05-26] MEDS ORDERED: POTASSIUM CHL 20 Meq TABLET PO ONE (14:15)
[2022-05-26] MEDS: fentaNYL 25MCG/HR 25 MCG/HR PAT TD SCH (15:11)
[2022-05-26 16:52] VITALS: BP 134/69
[2022-05-26] MEDS: DexAMETHasone 4 MG TAB PO SCH (19:38)
[2022-05-26] MEDS: ALPRAZolam 0.25 MG TAB PO PRN (20:14)
[2022-05-26] MEDS: ATORVASTATIN 20 MG TAB PO SCH (20:55)
[2022-05-26 22:00] VITALS: BP 117/55
[2022-05-26] MEDS: OXYCODONE W/ ACETAMINOPHEN 5/325MG TABLET PO PRN (23:57)
[2022-05-26] MEDS: CYCLOBENZAPRINE HCL 10 MG TAB PO PRN (23:57)
[2022-05-27 05:00] VITALS: BP 134/51
[2022-05-27] MEDS: SALINE 0.65 % NASAL SPRAY 45ML BOTTLE EACHNOSTRI SCH ×4 (06:00→21:21)
[2022-05-27] MEDS: Glucerna Carbsteady SHAKE Stawberry 8oz PO SCH ×3 (08:00→18:11)
[2022-05-27] MEDS: POLYETHYLENE GLYCOL 17 GM PWDR PO SCH (08:19)
[2022-05-27 08:34] VITALS: BP_SYST 116; BP_SYST 122; BP_DIAS 58; BP_DIAS 64
[2022-05-27] MEDS: DULoxetine HCL 30 MG CAP PO SCH ×2 (09:56→21:21)
[2022-05-27] MEDS: PANTOPRAZOLE 40 MG TAB PO SCH (09:56)
[2022-05-27] MEDS: ASPirin 81 mg TAB PO SCH (09:56)
[2022-05-27] MEDS: SODIUM CHLOR 0.9% PF (SALINE LOCK) 10ML VIAL/SYR IV SCH ×2 (09:56→21:20)
[2022-05-27] MEDS: AZITHROMYCIN 250 MG TAB PO SCH (09:56)
[2022-05-27] MEDS: ENOXAPARIN SOD 30 MG/0.3 ML SYRINGE SC SCH (09:57)
[2022-05-27] MEDS: ATENOLOL 25 MG TAB PO SCH ×2 (09:57→21:35)
[2022-05-27] MEDS: NITROGLYCERIN 0.4MG/HR TOPICAL PATCH TD SCH (10:00)
[2022-05-27 10:10] LABS: Magnesium 1.8 mg/dL (1.6-2.6); Potassium 3.5 mmol/L (3.5-5.1)
[2022-05-27 12:30] VITALS: BP 122/63
[2022-05-27 16:30] VITALS: BP 120/56
[2022-05-27] MEDS: DexAMETHasone 4 MG TAB PO SCH (17:45)
[2022-05-27] MEDS: ALPRAZolam 0.25 MG TAB PO PRN (19:22)
[2022-05-27] MEDS: OXYCODONE W/ ACETAMINOPHEN 5/325MG TABLET PO PRN (20:24)
[2022-05-27] MEDS: ATORVASTATIN 20 MG TAB PO SCH (21:21)
[2022-05-27 22:00] VITALS: BP 126/59
[2022-05-28 05:00] VITALS: BP 129/61
[2022-05-28] MEDS: SALINE 0.65 % NASAL SPRAY 45ML BOTTLE EACHNOSTRI SCH ×4 (05:15→22:27)
[2022-05-28 09:19] VITALS: BP 109/54
[2022-05-28] MEDS: Glucerna Carbsteady SHAKE Stawberry 8oz PO SCH ×3 (09:51→18:00)
[2022-05-28] MEDS: DULoxetine HCL 30 MG CAP PO SCH ×2 (09:52→22:28)
[2022-05-28] MEDS: PANTOPRAZOLE 40 MG TAB PO SCH (09:52)
[2022-05-28] MEDS: SODIUM CHLOR 0.9% PF (SALINE LOCK) 10ML VIAL/SYR IV SCH ×2 (09:52→22:27)
[2022-05-28] MEDS: POLYETHYLENE GLYCOL 17 GM PWDR PO SCH (09:52)
[2022-05-28] MEDS: ASPirin 81 mg TAB PO SCH (09:52)
[2022-05-28] MEDS: ATENOLOL 25 MG TAB PO SCH ×2 (09:53→22:29)
[2022-05-28] MEDS: AZITHROMYCIN 250 MG TAB PO SCH (09:53)
[2022-05-28] MEDS: ENOXAPARIN SOD 30 MG/0.3 ML SYRINGE SC SCH (09:54)
[2022-05-28] MEDS: NITROGLYCERIN 0.4MG/HR TOPICAL PATCH TD SCH (09:55)
[2022-05-28 12:49] VITALS: BP 91/54
[2022-05-28 17:22] VITALS: BP 100/50
[2022-05-28] MEDS: DexAMETHasone 4 MG TAB PO SCH (18:00)
[2022-05-28] MEDS: OXYCODONE W/ ACETAMINOPHEN 5/325MG TABLET PO PRN (18:40)
[2022-05-28] MEDS: CYCLOBENZAPRINE HCL 10 MG TAB PO PRN (18:40)
[2022-05-28] MEDS: ALPRAZolam 0.25 MG TAB PO PRN (20:11)
[2022-05-28 22:00] VITALS: BP 110/41
[2022-05-28] MEDS: ATORVASTATIN 20 MG TAB PO SCH (22:28)
[2022-05-29 05:07] VITALS: BP 124/60
[2022-05-29] MEDS: SALINE 0.65 % NASAL SPRAY 45ML BOTTLE EACHNOSTRI SCH ×4 (05:07→22:27)
[2022-05-29 09:13] VITALS: BP 124/60
[2022-05-29 09:15] VITALS: BP 106/59
[2022-05-29] MEDS: POLYETHYLENE GLYCOL 17 GM PWDR PO SCH (10:00)
[2022-05-29] MEDS: PANTOPRAZOLE 40 MG TAB PO SCH (10:15)
[2022-05-29] MEDS: ASPirin 81 mg TAB PO SCH (10:15)
[2022-05-29] MEDS: DULoxetine HCL 30 MG CAP PO SCH ×2 (10:15→22:27)
[2022-05-29] MEDS: OXYCODONE W/ ACETAMINOPHEN 5/325MG TABLET PO PRN ×2 (10:16→20:32)
[2022-05-29] MEDS: CYCLOBENZAPRINE HCL 10 MG TAB PO PRN ×2 (10:16→20:31)
[2022-05-29] MEDS: NITROGLYCERIN 0.4MG/HR TOPICAL PATCH TD SCH (10:17)
[2022-05-29] MEDS: ATENOLOL 25 MG TAB PO SCH ×2 (10:18→22:30)
[2022-05-29] MEDS: ENOXAPARIN SOD 30 MG/0.3 ML SYRINGE SC SCH (10:18)
[2022-05-29] MEDS: SODIUM CHLOR 0.9% PF (SALINE LOCK) 10ML VIAL/SYR IV SCH ×2 (10:19→22:26)
[2022-05-29] MEDS: Glucerna Carbsteady SHAKE Stawberry 8oz PO SCH ×3 (10:19→19:13)
[2022-05-29 12:58] VITALS: BP 116/81
[2022-05-29] MEDS: fentaNYL 25MCG/HR 25 MCG/HR PAT TD SCH (14:21)
[2022-05-29] MEDS: HYDROmorphone HCL 2 MG/ML VL/or syr IV PRN ×2 (17:13→23:51)
[2022-05-29 17:22] VITALS: BP 122/56
[2022-05-29] MEDS: DexAMETHasone 4 MG TAB PO SCH (19:04)
[2022-05-29] MEDS: ALPRAZolam 0.25 MG TAB PO PRN (20:32)
[2022-05-29 21:38] VITALS: BP 110/57
[2022-05-29] MEDS: ATORVASTATIN 20 MG TAB PO SCH (22:28)
[2022-05-30 04:47] VITALS: BP 123/62
[2022-05-30] MEDS: SALINE 0.65 % NASAL SPRAY 45ML BOTTLE EACHNOSTRI SCH ×4 (05:49→22:04)
[2022-05-30] MEDS: Glucerna Carbsteady SHAKE Stawberry 8oz PO SCH ×3 (08:57→18:49)
[2022-05-30 09:00] VITALS: BP 106/77
[2022-05-30] MEDS: POLYETHYLENE GLYCOL 17 GM PWDR PO SCH (10:13)
[2022-05-30] MEDS: DULoxetine HCL 30 MG CAP PO SCH ×2 (10:13→22:03)
[2022-05-30] MEDS: ASPirin 81 mg TAB PO SCH (10:13)
[2022-05-30] MEDS: PANTOPRAZOLE 40 MG TAB PO SCH (10:13)
[2022-05-30] MEDS: ENOXAPARIN SOD 30 MG/0.3 ML SYRINGE SC SCH (10:13)
[2022-05-30] MEDS: ATENOLOL 25 MG TAB PO SCH ×2 (10:14→22:03)
[2022-05-30] MEDS: SODIUM CHLOR 0.9% PF (SALINE LOCK) 10ML VIAL/SYR IV SCH ×2 (10:27→22:02)
[2022-05-30] MEDS: OXYCODONE W/ ACETAMINOPHEN 5/325MG TABLET PO PRN ×2 (11:10→20:00)
[2022-05-30] MEDS: CYCLOBENZAPRINE HCL 10 MG TAB PO PRN ×2 (11:10→19:59)
[2022-05-30 16:51] VITALS: BP 103/57
[2022-05-30] MEDS: DexAMETHasone 4 MG TAB PO SCH (18:46)
[2022-05-30] MEDS: ALPRAZolam 0.25 MG TAB PO PRN (20:00)
[2022-05-30 21:35] VITALS: BP 100/48
[2022-05-30] MEDS: ATORVASTATIN 20 MG TAB PO SCH (22:03)
[2022-05-30] MEDS: NITROGLYCERIN 0.4MG/HR TOPICAL PATCH TD SCH (22:04)
[2022-05-31 04:37] VITALS: BP 121/67
[2022-05-31] MEDS: SALINE 0.65 % NASAL SPRAY 45ML BOTTLE EACHNOSTRI SCH ×4 (06:24→21:46)
[2022-05-31] MEDS: Glucerna Carbsteady SHAKE Stawberry 8oz PO SCH ×3 (08:00→18:00)
[2022-05-31 08:10] VITALS: BP 110/63
[2022-05-31] MEDS: SODIUM CHLOR 0.9% PF (SALINE LOCK) 10ML VIAL/SYR IV SCH ×2 (09:36→21:29)
[2022-05-31] MEDS: PANTOPRAZOLE 40 MG TAB PO SCH (09:37)
[2022-05-31] MEDS: ASPirin 81 mg TAB PO SCH (09:37)
[2022-05-31] MEDS: DULoxetine HCL 30 MG CAP PO SCH ×2 (09:37→21:46)
[2022-05-31] MEDS: POLYETHYLENE GLYCOL 17 GM PWDR PO SCH (09:37)
[2022-05-31] MEDS: ATENOLOL 25 MG TAB PO SCH ×2 (09:43→21:47)
[2022-05-31] MEDS: ENOXAPARIN SOD 30 MG/0.3 ML SYRINGE SC SCH (09:44)
[2022-05-31] MEDS: OXYCODONE W/ ACETAMINOPHEN 5/325MG TABLET PO PRN ×2 (10:42→20:00)
[2022-05-31] MEDS: CYCLOBENZAPRINE HCL 10 MG TAB PO PRN ×2 (10:42→19:59)
[2022-05-31] MEDS ORDERED: TROLAMINE SALICYLATE 10% TOP CREAM TOP PRN (11:15)
[2022-05-31 11:50] VITALS: BP 76/44
[2022-05-31 17:02] VITALS: BP 123/61
[2022-05-31] MEDS: DexAMETHasone 4 MG TAB PO SCH (17:52)
[2022-05-31] MEDS: ALPRAZolam 0.25 MG TAB PO PRN (19:59)
[2022-05-31] MEDS: ATORVASTATIN 20 MG TAB PO SCH (21:47)
[2022-05-31] MEDS: NITROGLYCERIN 0.4MG/HR TOPICAL PATCH TD SCH (21:47)
[2022-05-31 21:50] VITALS: BP 109/59
[2022-06-01 05:00] VITALS: BP 122/70
[2022-06-01] MEDS: SALINE 0.65 % NASAL SPRAY 45ML BOTTLE EACHNOSTRI SCH ×4 (06:03→21:56)
[2022-06-01 06:12] LABS: Basophils # (auto) 0 10 ^3/uL (0-0.2); Basophils % (auto) 0.7 % (0.0-2.0); Eosinophils # (auto) 0 10 ^3/uL (0-0.8); Eosinophils % (auto) 0.5 % (0.0-7.0); Lymphocytes # (auto) 0.7 10 ^3/uL (0.4-5.4); Lymphocytes % (auto) 18.4 % (10.0-50.0); Mean Corpuscular Hemoglobin 28.2 pg (28.0-32.0); Mean Corpuscular Hgb Conc. 33.4 g/dL (32.0-36.0); Mean Corpuscular Volume 84.4 fL (80.0-100.0); Monocytes # (auto) 0.2 10 ^3/uL (0-1.3); Monocytes % (auto) 6.3 % (0.0-12.0); Neutrophils # (auto) 2.7 10 ^3/uL (1.6-8.6); Neutrophils % (auto) 74.1 % (37.0-80.0); Nucleated Red Blood Cells % 0.1 %; Red Blood Cells 3.55 10^6/uL (4.5-5.90); Red Cell Distribution Width 15.4 % (11.8-14.3); White Blood Cell 3.7 10^3/uL (4.4-10.8)
[2022-06-01 06:22] LABS: Albumin 2.3 g/dL (3.4-5.0); Calcium 8.6 mg/dL (8.5-10.1); Potassium 3.7 mmol/L (3.5-5.1)
[2022-06-01 06:26] LABS: Bilirubin, Total 0.3 mg/dL (0.2-1.0); Total Protein 6.1 g/dL (6.4-8.2)
[2022-06-01 07:39] VITALS: BP 122/70
[2022-06-01 08:00] VITALS: BP 106/59
[2022-06-01] MEDS: ASPirin 81 mg TAB PO SCH (09:40)
[2022-06-01] MEDS: SODIUM CHLOR 0.9% PF (SALINE LOCK) 10ML VIAL/SYR IV SCH ×2 (09:40→21:56)
[2022-06-01] MEDS: DULoxetine HCL 30 MG CAP PO SCH ×2 (09:40→21:56)
[2022-06-01] MEDS: POLYETHYLENE GLYCOL 17 GM PWDR PO SCH (09:40)
[2022-06-01] MEDS: PANTOPRAZOLE 40 MG TAB PO SCH (09:41)
[2022-06-01] MEDS: ENOXAPARIN SOD 30 MG/0.3 ML SYRINGE SC SCH (09:41)
[2022-06-01] MEDS: ATENOLOL 25 MG TAB PO SCH ×2 (09:42→21:55)
[2022-06-01] MEDS: OXYCODONE W/ ACETAMINOPHEN 5/325MG TABLET PO PRN ×2 (09:52→16:42)
[2022-06-01 12:00] VITALS: BP 103/56
[2022-06-01] MEDS: Glucerna Carbsteady SHAKE Stawberry 8oz PO SCH ×3 (12:00→18:00)
[2022-06-01] MEDS: fentaNYL 25MCG/HR 25 MCG/HR PAT TD SCH (14:24)
[2022-06-01 16:10] VITALS: BP 102/57
[2022-06-01] MEDS: DexAMETHasone 4 MG TAB PO SCH (18:15)
[2022-06-01] MEDS: ALPRAZolam 0.25 MG TAB PO PRN (21:04)
[2022-06-01] MEDS: ATORVASTATIN 20 MG TAB PO SCH (21:04)
[2022-06-01 21:55] VITALS: BP 118/59
[2022-06-01] MEDS: NITROGLYCERIN 0.4MG/HR TOPICAL PATCH TD SCH (21:55)
[2022-06-02 05:00] VITALS: BP 131/74
[2022-06-02] MEDS: SALINE 0.65 % NASAL SPRAY 45ML BOTTLE EACHNOSTRI SCH ×4 (05:37→21:46)
[2022-06-02 09:00] VITALS: BP 112/65
[2022-06-02] MEDS: PANTOPRAZOLE 40 MG TAB PO SCH (09:10)
[2022-06-02] MEDS: DULoxetine HCL 30 MG CAP PO SCH ×2 (09:10→21:45)
[2022-06-02] MEDS: ENOXAPARIN SOD 30 MG/0.3 ML SYRINGE SC SCH (09:11)
[2022-06-02] MEDS: ASPirin 81 mg TAB PO SCH (09:11)
[2022-06-02] MEDS: ATENOLOL 25 MG TAB PO SCH ×2 (09:23→21:46)
[2022-06-02] MEDS: POLYETHYLENE GLYCOL 17 GM PWDR PO SCH (09:23)
[2022-06-02] MEDS: OXYCODONE W/ ACETAMINOPHEN 5/325MG TABLET PO PRN ×2 (10:07→15:47)
[2022-06-02] MEDS: Glucerna Carbsteady SHAKE Stawberry 8oz PO SCH ×3 (11:17→17:31)
[2022-06-02] MEDS: SODIUM CHLOR 0.9% PF (SALINE LOCK) 10ML VIAL/SYR IV SCH ×2 (11:17→21:45)
[2022-06-02] MEDS: HYDROmorphone HCL 2 MG/ML VL/or syr IV PRN (12:33)
[2022-06-02 13:00] VITALS: BP 98/48
[2022-06-02 17:19] VITALS: BP 98/46
[2022-06-02] MEDS: DexAMETHasone 4 MG TAB PO SCH (17:31)
[2022-06-02] MEDS: ATORVASTATIN 20 MG TAB PO SCH (21:45)
[2022-06-02] MEDS: ALPRAZolam 0.25 MG TAB PO PRN (21:54)
[2022-06-02] MEDS: NITROGLYCERIN 0.4MG/HR TOPICAL PATCH TD SCH (21:55)
[2022-06-02 22:00] VITALS: BP 107/63
[2022-06-03] MEDS: OXYCODONE W/ ACETAMINOPHEN 5/325MG TABLET PO PRN ×4 (04:09→22:06)
[2022-06-03 05:00] VITALS: BP 129/75
[2022-06-03] MEDS: SALINE 0.65 % NASAL SPRAY 45ML BOTTLE EACHNOSTRI SCH ×4 (05:33→22:04)
[2022-06-03] MEDS: Glucerna Carbsteady SHAKE Stawberry 8oz PO SCH ×3 (08:37→17:05)
[2022-06-03] MEDS: DULoxetine HCL 30 MG CAP PO SCH ×2 (08:44→22:05)
[2022-06-03] MEDS: SODIUM CHLOR 0.9% PF (SALINE LOCK) 10ML VIAL/SYR IV SCH ×2 (08:44→22:04)
[2022-06-03] MEDS: PANTOPRAZOLE 40 MG TAB PO SCH (08:44)
[2022-06-03] MEDS: ASPirin 81 mg TAB PO SCH (08:44)
[2022-06-03] MEDS: ENOXAPARIN SOD 30 MG/0.3 ML SYRINGE SC SCH (08:44)
[2022-06-03] MEDS: ATENOLOL 25 MG TAB PO SCH ×2 (08:45→22:06)
[2022-06-03] MEDS: POLYETHYLENE GLYCOL 17 GM PWDR PO SCH (08:51)
[2022-06-03 09:07] VITALS: BP 118/63
[2022-06-03 14:53] VITALS: BP 130/62
[2022-06-03 16:41] VITALS: BP 118/62
[2022-06-03] MEDS: DexAMETHasone 4 MG TAB PO SCH (17:05)
[2022-06-03] MEDS: ALPRAZolam 0.25 MG TAB PO PRN (20:23)
[2022-06-03 22:00] VITALS: BP 118/59
[2022-06-03] MEDS: NITROGLYCERIN 0.4MG/HR TOPICAL PATCH TD SCH (22:00)
[2022-06-03] MEDS: ATORVASTATIN 20 MG TAB PO SCH (22:05)
[2022-06-03] MEDS: CYCLOBENZAPRINE HCL 10 MG TAB PO PRN (22:11)
[2022-06-03] MEDS: HYDROmorphone HCL 2 MG/ML VL/or syr IV PRN (22:55)
[2022-06-04] MEDS: OXYCODONE W/ ACETAMINOPHEN 5/325MG TABLET PO PRN ×4 (04:14→22:09)
[2022-06-04 05:00] VITALS: BP 128/69
[2022-06-04] MEDS: SALINE 0.65 % NASAL SPRAY 45ML BOTTLE EACHNOSTRI SCH ×4 (05:17→22:06)
[2022-06-04 08:00] VITALS: BP 120/60
[2022-06-04] MEDS: Glucerna Carbsteady SHAKE Stawberry 8oz PO SCH ×3 (08:17→17:09)
[2022-06-04] MEDS: POLYETHYLENE GLYCOL 17 GM PWDR PO SCH (08:18)
[2022-06-04] MEDS: ASPirin 81 mg TAB PO SCH (10:03)
[2022-06-04] MEDS: PANTOPRAZOLE 40 MG TAB PO SCH (10:03)
[2022-06-04] MEDS: DULoxetine HCL 30 MG CAP PO SCH ×2 (10:03→22:07)
[2022-06-04] MEDS: ATENOLOL 25 MG TAB PO SCH ×2 (10:04→22:08)
[2022-06-04] MEDS: ENOXAPARIN SOD 30 MG/0.3 ML SYRINGE SC SCH (10:05)
[2022-06-04] MEDS: LOSARTAN POTASSIUM 25 MG TAB PO SCH (10:05)
[2022-06-04] MEDS: SODIUM CHLOR 0.9% PF (SALINE LOCK) 10ML VIAL/SYR IV SCH ×2 (10:08→22:06)
[2022-06-04 11:18] VITALS: BP 120/60
[2022-06-04] MEDS: fentaNYL 25MCG/HR 25 MCG/HR PAT TD SCH (13:18)
[2022-06-04 17:00] VITALS: BP 101/51
[2022-06-04] MEDS: DexAMETHasone 4 MG TAB PO SCH (17:09)
[2022-06-04] MEDS: CYCLOBENZAPRINE HCL 10 MG TAB PO PRN (18:22)
[2022-06-04] MEDS: HYDROmorphone HCL 2 MG/ML VL/or syr IV PRN (19:51)
[2022-06-04 22:00] VITALS: BP 103/55
[2022-06-04] MEDS: NITROGLYCERIN 0.4MG/HR TOPICAL PATCH TD SCH (22:00)
[2022-06-04] MEDS: ATORVASTATIN 20 MG TAB PO SCH (22:07)
[2022-06-04] MEDS: ALPRAZolam 0.25 MG TAB PO PRN (22:10)
[2022-06-05] MEDS: HYDROmorphone HCL 2 MG/ML VL/or syr IV PRN ×2 (01:13→07:17)
[2022-06-05] MEDS: CYCLOBENZAPRINE HCL 10 MG TAB PO PRN ×2 (01:59→20:46)
[2022-06-05 05:00] VITALS: BP 133/66
[2022-06-05] MEDS: SALINE 0.65 % NASAL SPRAY 45ML BOTTLE EACHNOSTRI SCH ×4 (05:45→22:27)
[2022-06-05] MEDS: OXYCODONE W/ ACETAMINOPHEN 5/325MG TABLET PO PRN ×3 (05:46→20:46)
[2022-06-05 08:36] VITALS: BP 115/70
[2022-06-05] MEDS: ASPirin 81 mg TAB PO SCH (09:32)
[2022-06-05] MEDS: DULoxetine HCL 30 MG CAP PO SCH ×2 (09:32→20:46)
[2022-06-05] MEDS: ENOXAPARIN SOD 30 MG/0.3 ML SYRINGE SC SCH (09:34)
[2022-06-05] MEDS: PANTOPRAZOLE 40 MG TAB PO SCH (09:34)
[2022-06-05] MEDS: ATENOLOL 25 MG TAB PO SCH ×2 (09:34→22:00)
[2022-06-05] MEDS: LOSARTAN POTASSIUM 25 MG TAB PO SCH (09:35)
[2022-06-05] MEDS ORDERED: DexAMETHasone 4 MG TAB PO ONE (10:00)
[2022-06-05] MEDS ORDERED: DexAMETHasone 4 MG TAB PO SCH (10:00)
[2022-06-05] MEDS: Glucerna Carbsteady SHAKE Stawberry 8oz PO SCH ×3 (12:00→17:52)
[2022-06-05] MEDS: POLYETHYLENE GLYCOL 17 GM PWDR PO SCH (12:13)
[2022-06-05] MEDS: SODIUM CHLOR 0.9% PF (SALINE LOCK) 10ML VIAL/SYR IV SCH ×2 (12:13→22:27)
[2022-06-05 13:00] VITALS: BP 94/47
[2022-06-05 16:32] VITALS: BP 105/57
[2022-06-05] MEDS: metFORMIN HYDROCHLORIDE 500 MG TAB PO SCH (17:52)
[2022-06-05] MEDS: DexAMETHasone 4 MG TAB PO SCH (17:52)
[2022-06-05] MEDS: DOCUSATE SOD 100 MG CAP PO PRN (20:46)
[2022-06-05] MEDS: ATORVASTATIN 20 MG TAB PO SCH (20:46)
[2022-06-05] MEDS: ALPRAZolam 0.25 MG TAB PO PRN (20:59)
[2022-06-05 22:00] VITALS: BP 105/66
[2022-06-05] MEDS: NITROGLYCERIN 0.4MG/HR TOPICAL PATCH TD SCH (22:00)
[2022-06-06 05:00] VITALS: BP 146/71
[2022-06-06] MEDS: SALINE 0.65 % NASAL SPRAY 45ML BOTTLE EACHNOSTRI SCH ×4 (05:34→21:40)
[2022-06-06 06:08] LABS: BUN/Creatinine Ratio 24.8; Calcium 9.1 mg/dL (8.5-10.1); Potassium 4.2 mmol/L (3.5-5.1)
[2022-06-06] MEDS: OXYCODONE W/ ACETAMINOPHEN 5/325MG TABLET PO PRN ×3 (07:27→20:58)
[2022-06-06 09:00] VITALS: BP 112/59
[2022-06-06] MEDS: DexAMETHasone 4 MG TAB PO SCH ×2 (09:17→18:09)
[2022-06-06] MEDS: ATENOLOL 25 MG TAB PO SCH ×2 (09:17→21:49)
[2022-06-06] MEDS: DULoxetine HCL 30 MG CAP PO SCH ×2 (09:18→21:42)
[2022-06-06] MEDS: PANTOPRAZOLE 40 MG TAB PO SCH (09:18)
[2022-06-06] MEDS: ASPirin 81 mg TAB PO SCH (09:19)
[2022-06-06] MEDS: ENOXAPARIN SOD 30 MG/0.3 ML SYRINGE SC SCH (09:19)
[2022-06-06] MEDS: LOSARTAN POTASSIUM 25 MG TAB PO SCH (09:19)
[2022-06-06] MEDS: Glucerna Carbsteady SHAKE Stawberry 8oz PO SCH ×3 (09:20→18:08)
[2022-06-06] MEDS: POLYETHYLENE GLYCOL 17 GM PWDR PO SCH (09:21)
[2022-06-06] MEDS: metFORMIN HYDROCHLORIDE 500 MG TAB PO SCH ×2 (09:22→18:09)
[2022-06-06] MEDS: SODIUM CHLOR 0.9% PF (SALINE LOCK) 10ML VIAL/SYR IV SCH ×2 (09:31→21:49)
[2022-06-06] MEDS ORDERED: fentaNYL 25MCG/HR 25 MCG/HR PAT TD SCH (10:30)
[2022-06-06] MEDS: fentaNYL 50MCG/HR 50 MCG/HR PAT TD SCH (12:32)
[2022-06-06 13:00] VITALS: BP 112/62
[2022-06-06 17:13] VITALS: BP 91/56
[2022-06-06] MEDS: ATORVASTATIN 20 MG TAB PO SCH (21:42)
[2022-06-06] MEDS: ALPRAZolam 0.25 MG TAB PO PRN (21:49)
[2022-06-06] MEDS: NITROGLYCERIN 0.4MG/HR TOPICAL PATCH TD SCH (22:00)
[2022-06-06 22:08] VITALS: BP 115/62
[2022-06-06] MEDS: HYDROmorphone HCL 2 MG/ML VL/or syr IV PRN (23:08)
[2022-06-07] MEDS: CYCLOBENZAPRINE HCL 10 MG TAB PO PRN ×2 (01:43→23:20)
[2022-06-07 04:47] VITALS: BP 140/77
[2022-06-07] MEDS: OXYCODONE W/ ACETAMINOPHEN 5/325MG TABLET PO PRN ×3 (04:55→20:02)
[2022-06-07] MEDS: SALINE 0.65 % NASAL SPRAY 45ML BOTTLE EACHNOSTRI SCH ×4 (06:04→21:53)
[2022-06-07] MEDS: metFORMIN HYDROCHLORIDE 500 MG TAB PO SCH ×2 (08:24→18:20)
[2022-06-07] MEDS: DexAMETHasone 4 MG TAB PO SCH ×2 (08:24→18:20)
[2022-06-07 09:00] VITALS: BP 107/68
[2022-06-07] MEDS: Glucerna Carbsteady SHAKE Stawberry 8oz PO SCH ×3 (09:03→18:23)
[2022-06-07] MEDS: LOSARTAN POTASSIUM 25 MG TAB PO SCH (10:00)
[2022-06-07] MEDS: POLYETHYLENE GLYCOL 17 GM PWDR PO SCH (10:00)
[2022-06-07] MEDS: ENOXAPARIN SOD 30 MG/0.3 ML SYRINGE SC SCH (10:42)
[2022-06-07] MEDS: PANTOPRAZOLE 40 MG TAB PO SCH (10:44)
[2022-06-07] MEDS: ASPirin 81 mg TAB PO SCH (10:44)
[2022-06-07] MEDS: DULoxetine HCL 30 MG CAP PO SCH ×2 (10:44→21:53)
[2022-06-07] MEDS: ATENOLOL 25 MG TAB PO SCH ×2 (10:44→21:52)
[2022-06-07] MEDS: SODIUM CHLOR 0.9% PF (SALINE LOCK) 10ML VIAL/SYR IV SCH ×2 (11:02→21:53)
[2022-06-07 13:00] VITALS: BP 110/72
[2022-06-07] MEDS: GABAPENTIN 100 MG CAP PO SCH ×2 (15:41→21:53)
[2022-06-07 17:00] VITALS: BP 105/66
[2022-06-07] MEDS: ALPRAZolam 0.25 MG TAB PO PRN (20:02)
[2022-06-07] MEDS: ATORVASTATIN 20 MG TAB PO SCH (21:53)
[2022-06-07] MEDS: NITROGLYCERIN 0.4MG/HR TOPICAL PATCH TD SCH (21:54)
[2022-06-07 22:01] VITALS: BP 122/64
[2022-06-08 04:53] VITALS: BP 148/78
[2022-06-08] MEDS: GABAPENTIN 100 MG CAP PO SCH ×3 (05:20→22:03)
[2022-06-08] MEDS: OXYCODONE W/ ACETAMINOPHEN 5/325MG TABLET PO PRN ×2 (05:20→22:45)
[2022-06-08] MEDS: SALINE 0.65 % NASAL SPRAY 45ML BOTTLE EACHNOSTRI SCH ×4 (05:24→22:00)
[2022-06-08 06:06] LABS: Basophils # (auto) 0 10 ^3/uL (0-0.2); Basophils % (auto) 0.6 % (0.0-2.0); Eosinophils # (auto) 0 10 ^3/uL (0-0.8); Eosinophils % (auto) 0.7 % (0.0-7.0); Hematocrit 28.5 % (41.0-53.0); Hemoglobin 9.6 g/dL (13.5-17.5); Lymphocytes # (auto) 0.4 10 ^3/uL (0.4-5.4); Lymphocytes % (auto) 9.2 % (10.0-50.0); Mean Corpuscular Hemoglobin 28.6 pg (28.0-32.0); Mean Corpuscular Hgb Conc. 33.5 g/dL (32.0-36.0); Mean Corpuscular Volume 85.4 fL (80.0-100.0); Monocytes # (auto) 0.3 10 ^3/uL (0-1.3); Monocytes % (auto) 6.7 % (0.0-12.0); Neutrophils # (auto) 3.7 10 ^3/uL (1.6-8.6); Neutrophils % (auto) 82.8 % (37.0-80.0); Nucleated Red Blood Cells % 0.1 %; Red Blood Cells 3.34 10^6/uL (4.5-5.90); Red Cell Distribution Width 16.2 % (11.8-14.3); White Blood Cell 4.5 10^3/uL (4.4-10.8)
[2022-06-08 06:18] LABS: Albumin 2.4 g/dL (3.4-5.0); BUN/Creatinine Ratio 27.9; Calcium 8.6 mg/dL (8.5-10.1)
[2022-06-08 06:21] LABS: Bilirubin, Total 0.4 mg/dL (0.2-1.0); Total Protein 5.7 g/dL (6.4-8.2)
[2022-06-08] MEDS: metFORMIN HYDROCHLORIDE 500 MG TAB PO SCH ×2 (08:20→18:47)
[2022-06-08] MEDS: DexAMETHasone 4 MG TAB PO SCH ×2 (08:20→18:47)
[2022-06-08 09:00] VITALS: BP 130/77
[2022-06-08] MEDS: Glucerna Carbsteady SHAKE Stawberry 8oz PO SCH ×3 (09:03→17:55)
[2022-06-08] MEDS: POLYETHYLENE GLYCOL 17 GM PWDR PO SCH (10:00)
[2022-06-08] MEDS: PANTOPRAZOLE 40 MG TAB PO SCH (10:29)
[2022-06-08] MEDS: DULoxetine HCL 30 MG CAP PO SCH ×2 (10:29→22:03)
[2022-06-08] MEDS: ATENOLOL 25 MG TAB PO SCH ×2 (10:30→22:00)
[2022-06-08] MEDS: ASPirin 81 mg TAB PO SCH (10:30)
[2022-06-08] MEDS: ENOXAPARIN SOD 30 MG/0.3 ML SYRINGE SC SCH (10:31)
[2022-06-08] MEDS: LOSARTAN POTASSIUM 25 MG TAB PO SCH (10:31)
[2022-06-08] MEDS: SODIUM CHLOR 0.9% PF (SALINE LOCK) 10ML VIAL/SYR IV SCH ×2 (10:38→22:00)
[2022-06-08 14:06] VITALS: BP 116/55
[2022-06-08] MEDS: KETOROLAC TROMETH 30 MG/ML 1ML VIAL IV PRN (16:02)
[2022-06-08 16:04] VITALS: BP 102/51
[2022-06-08 21:57] VITALS: BP 94/45
[2022-06-08] MEDS: NITROGLYCERIN 0.4MG/HR TOPICAL PATCH TD SCH (22:00)
[2022-06-08] MEDS: ATORVASTATIN 20 MG TAB PO SCH (22:03)
[2022-06-08] MEDS: ALPRAZolam 0.25 MG TAB PO PRN (22:12)
[2022-06-09] MEDS: NITROGLYCERIN 0.4 MG SL TAB SL PRN ×2 (04:42→06:45)
[2022-06-09 04:50] VITALS: BP 127/68
[2022-06-09] MEDS: GABAPENTIN 100 MG CAP PO SCH (05:39)
[2022-06-09] MEDS: SALINE 0.65 % NASAL SPRAY 45ML BOTTLE EACHNOSTRI SCH ×4 (06:06→22:00)
[2022-06-09] MEDS: Glucerna Carbsteady SHAKE Stawberry 8oz PO SCH ×3 (08:00→17:32)
[2022-06-09 08:58] VITALS: BP 122/56
[2022-06-09] MEDS: metFORMIN HYDROCHLORIDE 500 MG TAB PO SCH ×2 (09:05→17:33)
[2022-06-09] MEDS: PANTOPRAZOLE 40 MG TAB PO SCH (09:20)
[2022-06-09] MEDS: ENOXAPARIN SOD 30 MG/0.3 ML SYRINGE SC SCH (09:20)
[2022-06-09] MEDS: ASPirin 81 mg TAB PO SCH (09:20)
[2022-06-09] MEDS: DexAMETHasone 4 MG TAB PO SCH ×2 (09:21→18:22)
[2022-06-09] MEDS: DULoxetine HCL 30 MG CAP PO SCH ×2 (09:22→22:01)
[2022-06-09] MEDS: SODIUM CHLOR 0.9% PF (SALINE LOCK) 10ML VIAL/SYR IV SCH ×2 (09:23→22:00)
[2022-06-09] MEDS: LOSARTAN POTASSIUM 25 MG TAB PO SCH (09:23)
[2022-06-09] MEDS: ATENOLOL 25 MG TAB PO SCH ×2 (10:00→22:00)
[2022-06-09] MEDS: POLYETHYLENE GLYCOL 17 GM PWDR PO SCH (10:00)
[2022-06-09] MEDS: fentaNYL 50MCG/HR 50 MCG/HR PAT TD SCH (13:08)
[2022-06-09] MEDS: GABAPENTIN 300 MG CAP PO SCH ×2 (14:14→22:02)
[2022-06-09] MEDS ORDERED: LOPERAMIDE HCL 2 MG CAP/TAB PO ONE (14:45)
[2022-06-09] MEDS ORDERED: LOPERAMIDE HCL 2 MG CAP/TAB PO PRN (16:00)
[2022-06-09 16:58] VITALS: BP 99/51
[2022-06-09] MEDS: OXYCODONE W/ ACETAMINOPHEN 5/325MG TABLET PO PRN (21:10)
[2022-06-09] MEDS: ALPRAZolam 0.25 MG TAB PO PRN (21:11)
[2022-06-09] MEDS: NITROGLYCERIN 0.4MG/HR TOPICAL PATCH TD SCH (22:00)
[2022-06-09] MEDS: ATORVASTATIN 20 MG TAB PO SCH (22:02)
[2022-06-09 22:23] VITALS: BP 103/56
[2022-06-10 05:00] VITALS: BP 122/59
[2022-06-10] MEDS: SALINE 0.65 % NASAL SPRAY 45ML BOTTLE EACHNOSTRI SCH ×2 (06:51→13:29)
[2022-06-10] MEDS: GABAPENTIN 300 MG CAP PO SCH ×3 (06:52→13:32)
[2022-06-10] MEDS: metFORMIN HYDROCHLORIDE 500 MG TAB PO SCH (08:34)
[2022-06-10] MEDS: Glucerna Carbsteady SHAKE Stawberry 8oz PO SCH ×2 (08:34→13:29)
[2022-06-10 09:00] VITALS: BP 130/61
[2022-06-10] MEDS: OXYCODONE W/ ACETAMINOPHEN 5/325MG TABLET PO PRN (09:22)
[2022-06-10] MEDS: DexAMETHasone 4 MG TAB PO SCH (09:23)
[2022-06-10] MEDS: PANTOPRAZOLE 40 MG TAB PO SCH (09:23)
[2022-06-10] MEDS: ASPirin 81 mg TAB PO SCH (09:23)
[2022-06-10] MEDS: DULoxetine HCL 30 MG CAP PO SCH (09:23)
[2022-06-10] MEDS: KETOROLAC TROMETH 30 MG/ML 1ML VIAL IV PRN (09:33)
[2022-06-10] MEDS: SODIUM CHLOR 0.9% PF (SALINE LOCK) 10ML VIAL/SYR IV SCH (09:37)
[2022-06-10] MEDS: LOSARTAN POTASSIUM 25 MG TAB PO SCH (09:44)
[2022-06-10] MEDS: POLYETHYLENE GLYCOL 17 GM PWDR PO SCH (09:44)
[2022-06-10] MEDS: ATENOLOL 25 MG TAB PO SCH (09:46)
[2022-06-10] MEDS: ENOXAPARIN SOD 30 MG/0.3 ML SYRINGE SC SCH (09:49)
[2022-06-10 13:00] VITALS: BP 103/94
[2022-06-10 13:18] VITALS: BP 130/61
== END 2022-06-10 15:01 | disposition home or self-care (01) | DRG 280 ==
LOC: ER 08:38 → EDBD 08:38 → TELE 11:31 → ICU CENTRL 13:48 → DOU IN ICU 05-15 17:47 → TELE-DOU 05-20 17:43 → TELE-EAST 05-20 18:46
PROVIDERS: ADMIT Internal Medicine; ATTEND Internal Medicine
DX: I21.4 Non-ST elevation (NSTEMI) myocardial infarction (principal); E43 Unspecified severe protein-calorie malnutrition; R57.0 Cardiogenic shock; U07.1 COVID-19; N17.0 Acute kidney failure with tubular necrosis; I50.43 Acute on chronic combined systolic (congestive) and diastolic (congestive) heart failure; J96.01 Acute respiratory failure with hypoxia; N18.5 Chronic kidney disease, stage 5; E87.1 Hypo-osmolality and hyponatremia; E87.2 Acidosis; I13.2 Hypertensive heart and chronic kidney disease with heart failure and with stage 5 chronic kidney disease, or end stage renal disease; I48.20 Chronic atrial fibrillation, unspecified; N25.81 Secondary hyperparathyroidism of renal origin; I42.9 Cardiomyopathy, unspecified; Z66 Do not resuscitate; D63.1 Anemia in chronic kidney disease; E11.22 Type 2 diabetes mellitus with diabetic chronic kidney disease; E87.5 Hyperkalemia; G89.29 Other chronic pain; E87.6 Hypokalemia; F32.A Depression, unspecified; F41.9 Anxiety disorder, unspecified; E11.65 Type 2 diabetes mellitus with hyperglycemia; E78.5 Hyperlipidemia, unspecified; I25.10 Atherosclerotic heart disease of native coronary artery without angina pectoris; K59.00 Constipation, unspecified; Z51.5 Encounter for palliative care; Z79.82 Long term (current) use of aspirin; Z79.899 Other long term (current) drug therapy; Z82.49 Family history of ischemic heart disease and other diseases of the circulatory system; Z83.3 Family history of diabetes mellitus; Z85.118 Personal history of other malignant neoplasm of bronchus and lung; Z86.11 Personal history of tuberculosis; Z92.3 Personal history of irradiation; Z95.1 Presence of aortocoronary bypass graft; Z68.28 Body mass index [BMI] 28.0-28.9, adult; Z79.84 Long term (current) use of oral hypoglycemic drugs
CPT/HCPCS: 36415; 36569; 71045; 73721; 76775; 80048; 80053; 81001; 82306; 82550; 82570; 82962; 83036; 83735; 83880; 83930; 83935; 83970; 84100; 84132; 84156; 84300; 84443; 84484; 85007; 85025; 85027; 85379; 85610; 85730; 86803; 87081; 87340; 93005; 93306; 94640; 96361; 96365; 96372; 96375; 97110; 97116; 97163; 97530; 99291; C9113; G0378; J1100; J1815; J1885; J2405; J2543

== ENCOUNTER 2022-09-26 15:08 | Inpatient (IN) | payer MEDICARE, OTHER ==
[~2022-09-26] VITALS: Ht 172.7 cm; Wt 65.0 kg
[~2022-09-26 15:08] MED LIST changes: +ACET1CAP14 PO; +AML5T PO; -ATO40T PO; +CLOP75TA28 PO; +CYCL-837 PO; +LOSA-69 PO; -LOSA25TA38 PO; +METF-370 PO; -METF-372 PO; +NITR1SPR TL; +PERCOT PO; -RANI150C11 PO; -RANI1TAB PO; +RANO500T2 PO
[2022-09-26] MEDS ORDERED: MORPHINE SULFATE INJ 2 MG/ml SYRG IV PRN ×2 (16:00)
[2022-09-26] MEDS ORDERED: ONDANSETRON HCL 4 MG/2 ML VIAL IV PRN (16:00)
[2022-09-26] MEDS ORDERED: DEXTROSE (50%) 50ML SYRG IV PRN (16:00)
[2022-09-26] MEDS ORDERED: SODIUM CHLORIDE 0.9% 1,000 ML IV SCH (16:00)
[2022-09-26] MEDS ORDERED: POLYETHYLENE GLYCOL 17 GM PWDR PO PRN (16:00)
[2022-09-26] MEDS ORDERED: HYDROcodone-ACET 5/325MG TAB PO PRN (16:00)
[2022-09-26] MEDS ORDERED: ALUM & MAG HYDROX-SIMETH LIQ(MAALOX) 30 ML PO PRN (16:00)
[2022-09-26] MEDS ORDERED: LORazepam 0.5 MG TAB PO PRN (16:00)
[2022-09-26] MEDS ORDERED: NITROGLYCERIN 0.4 MG SL TAB SL PRN (16:00)
[2022-09-26 16:23] LABS: Basophils # (auto) 0.1 10 ^3/uL (0-0.2); Basophils % (auto) 0.9 % (0.0-2.0); Eosinophils # (auto) 0.2 10 ^3/uL (0-0.8); Eosinophils % (auto) 1.7 % (0.0-7.0); Hematocrit 38.2 % (41.0-53.0); Hemoglobin 12.7 g/dL (13.5-17.5); Lymphocytes # (auto) 0.7 10 ^3/uL (0.4-5.4); Lymphocytes % (auto) 7.3 % (10.0-50.0); Mean Corpuscular Hemoglobin 27.8 pg (28.0-32.0); Mean Corpuscular Hgb Conc. 33.3 g/dL (32.0-36.0); Mean Corpuscular Volume 83.3 fL (80.0-100.0); Monocytes # (auto) 0.4 10 ^3/uL (0-1.3); Monocytes % (auto) 4.7 % (0.0-12.0); Neutrophils # (auto) 7.9 10 ^3/uL (1.6-8.6); Neutrophils % (auto) 85.4 % (37.0-80.0); Red Blood Cells 4.59 10^6/uL (4.5-5.90); Red Cell Distribution Width 14.9 % (11.8-14.3); White Blood Cell 9.3 10^3/uL (4.4-10.8)
[2022-09-26 16:37] LABS: Partial Thromboplastin Time 26.3 sec (24.6-33.4)
[2022-09-26 16:40] LABS: Albumin 3.7 g/dL (3.4-5.0); BUN/Creatinine Ratio 29.7; Calcium 10.3 mg/dL (8.5-10.1); Magnesium 2.8 mg/dL (1.6-2.6); Potassium 5.2 mmol/L (3.5-5.1)
[2022-09-26 16:43] LABS: Bilirubin, Total 0.4 mg/dL (0.2-1.0); Phosphorus 4.7 mg/dL (2.5-4.90); Total Protein 8.1 g/dL (6.4-8.2)
[2022-09-26 17:00] VITALS: BP 108/62
[2022-09-26] MEDS: InsuLIN REG 1unit/0.01ml Soln (100units/ml) SC SCH (17:00)
[2022-09-26] MEDS: ACCU-CHEK COMFORT CURVE STRIP VI SCH ×2 (17:00→22:00)
[2022-09-26 17:38] VITALS: BP 108/62
[2022-09-26] MEDS ORDERED: ROSU40TA PO (18:16)
[2022-09-26] MEDS ORDERED: METF-372 PO (18:17)
[2022-09-26] MEDS ORDERED: DULO20CA PO (18:19)
[2022-09-26] MEDS ORDERED: FENT25DI2 TD (18:22)
[2022-09-26] MEDS ORDERED: KET30I PO (18:23)
[2022-09-26] MEDS ORDERED: DEXA0.5E4 PO (18:24)
[2022-09-26] MEDS ORDERED: ONDA-144 PO (18:25)
[2022-09-26] MEDS ORDERED: POLY33504 PO (18:25)
[2022-09-26] MEDS ORDERED: fentaNYL 50MCG/HR 50 MCG/HR PAT TD SCH (19:45)
[2022-09-26] MEDS: ACETAMINOPHEN 500 MG TAB PO PRN (21:28)
[2022-09-26] MEDS: OXYCODONE W/ ACETAMINOPHEN 5/325MG TABLET PO PRN (21:29)
[2022-09-26] MEDS: DULoxetine HCL 30 MG CAP PO SCH (21:34)
[2022-09-26 22:00] VITALS: BP 109/68
[2022-09-26] MEDS ORDERED: InsuLIN REG 1unit/0.01ml Soln (100units/ml) SC SCH (22:00)
[2022-09-26] MEDS ORDERED: PANTOPRAZOLE 40 MG TAB PO SCH (22:00)
[2022-09-26 22:11] LABS: Urine WBC None Seen /hpf (0 - 3)
[2022-09-26 22:16] LABS: Urine Bacteria NONE SEEN /hpf (None Seen); Urine Blood Negative /uL (Negative); Urine Specific Gravity 1.012 (1.001-1.035)
[2022-09-27 05:00] VITALS: BP_SYST 132; BP_SYST 139; BP_DIAS 66; BP_DIAS 74
[2022-09-27] MEDS: OXYCODONE W/ ACETAMINOPHEN 5/325MG TABLET PO PRN (06:02)
[2022-09-27] MEDS: ACETAMINOPHEN 500 MG TAB PO PRN (06:02)
[2022-09-27 06:11] LABS: Basophils # (auto) 0 10 ^3/uL (0-0.2); Basophils % (auto) 0.8 % (0.0-2.0); Eosinophils # (auto) 0.1 10 ^3/uL (0-0.8); Hematocrit 35.8 % (41.0-53.0); Hemoglobin 11.7 g/dL (13.5-17.5); Lymphocytes # (auto) 0.7 10 ^3/uL (0.4-5.4); Lymphocytes % (auto) 13.3 % (10.0-50.0); Mean Corpuscular Hemoglobin 27.3 pg (28.0-32.0); Mean Corpuscular Hgb Conc. 32.7 g/dL (32.0-36.0); Mean Corpuscular Volume 83.5 fL (80.0-100.0); Monocytes # (auto) 0.4 10 ^3/uL (0-1.3); Monocytes % (auto) 7.6 % (0.0-12.0); Neutrophils # (auto) 4.2 10 ^3/uL (1.6-8.6); Neutrophils % (auto) 76.3 % (37.0-80.0); Nucleated Red Blood Cells % 0.1 %; Red Blood Cells 4.29 10^6/uL (4.5-5.90); White Blood Cell 5.5 10^3/uL (4.4-10.8)
[2022-09-27] MEDS: InsuLIN REG 1unit/0.01ml Soln (100units/ml) SC SCH (06:13)
[2022-09-27] MEDS: ACCU-CHEK COMFORT CURVE STRIP VI SCH (06:13)
[2022-09-27 06:34] LABS: Albumin 3.3 g/dL (3.4-5.0); Calcium 9.3 mg/dL (8.5-10.1); Magnesium 2.6 mg/dL (1.6-2.6); Potassium 4.7 mmol/L (3.5-5.1)
[2022-09-27 06:39] LABS: BUN/Creatinine Ratio 29.3; Bilirubin, Total 0.4 mg/dL (0.2-1.0); Total Protein 7.2 g/dL (6.4-8.2)
[2022-09-27 09:00] VITALS: BP 116/61
[2022-09-27] MEDS: DULoxetine HCL 30 MG CAP PO SCH (09:59)
[2022-09-27] MEDS ORDERED: CLOPIDOGREL BISULFATE 75 MG TAB PO SCH (10:00)
[2022-09-27] MEDS ORDERED: ATENOLOL 50 MG TAB PO SCH (10:00)
[2022-09-27] MEDS ORDERED: PANTOPRAZOLE 40 MG TAB PO SCH (10:00)
[2022-09-27] MEDS ORDERED: POLYETHYLENE GLYCOL 17 GM PWDR PO SCH (10:00)
[2022-09-27] MEDS ORDERED: ASPirin 81 mg TAB PO SCH (10:00)
[2022-09-27 13:13] VITALS: BP 116/61
[2022-09-28] MEDS ORDERED: DexAMETHasone 4 MG TAB PO SCH (10:00)
== END 2022-09-27 14:15 | disposition home or self-care (01) | DRG 640 ==
LOC: CENTRAL 15:41 → TELE-CENTR 20:03
PROVIDERS: ADMIT Internal Medicine; ATTEND Internal Medicine
DX: E87.6 Hypokalemia (principal); N17.0 Acute kidney failure with tubular necrosis; C34.90 Malignant neoplasm of unspecified part of unspecified bronchus or lung; I50.22 Chronic systolic (congestive) heart failure; I25.10 Atherosclerotic heart disease of native coronary artery without angina pectoris; E11.9 Type 2 diabetes mellitus without complications; E86.0 Dehydration; I11.0 Hypertensive heart disease with heart failure; Z82.49 Family history of ischemic heart disease and other diseases of the circulatory system; Z83.3 Family history of diabetes mellitus; Z85.118 Personal history of other malignant neoplasm of bronchus and lung; Z92.21 Personal history of antineoplastic chemotherapy
CPT/HCPCS: 36415; 71046; 80053; 81001; 83036; 83735; 83880; 84100; 84439; 84443; 85025; 85610; 85730; 93005; 93306; G0378; J2405